=== PATIENT | male | born 1955 | race African-American/Black ===

== ENCOUNTER 2016-12-13 00:25 | Emergency (ER) | payer OTHER ==
[2016-12-13 01:12] LABS: URINE SOURCE VOIDED
--- NOTE | 2016-12-13 01:20 | PROVIDER DOCUMENTATION ---
HPI-General Adult - General Chief Complaint: Fall Stated Complaint: FALL Time Seen by Provider: 12/13/16 00:57 Source: patient Allergies/Adverse Reactions: Patient Allergies Allergy/AdvReac Type Severity Reaction Status Date / Time No Known Allergies Allergy Verified 12/13/16 00:54 Home Medications: Home Medication List Medication Instructions Recorded Confirmed Last Taken Type Digoxin 0.125 mg PO DAILY 09/12/14 10/30/16 1 Day Ago History Carvedilol 50 mg PO BID 09/16/14 10/30/16 1 Day Ago History Aspirin 81 mg PO QHS 09/20/15 10/30/16 1 Day Ago History Furosemide [Lasix] 40 mg PO DAILY PRN 09/20/15 10/30/16 10/30/16 History Albuterol Sulfate [Proair Hfa] 8.5 gm IH Q4-6H PRN PRN #1 09/22/15 10/30/16 Unknown Rx [email or web address] Tramadol [Ultram] 50 mg PO Q6H PRN PRN 10/30/16 10/30/16 Unknown History Sulfamethoxazole/Trimethoprim 1 each PO BID #10 tablet 12/13/16 Unknown Rx [Bactrim Ds Tablet] Tramadol [Ultram] 50 mg PO Q8HR #12 tablet 12/13/16 Unknown Rx - History of Present Illness -Gen Adult Nature of Presenting Problems: Pt. is 61 yom that presents with c/o left rib pain after he fell and hit his side on the end table. Pt. reports pain on inspiration and tenderness to touch. Pt. also reports having the urge to urinated but when he does it is difficult to go. Pt. denies any other symptoms at time of exam. Location of Pain/Injury: reports: chest (Left ribs). denies: head, face, mouth , neck, upper extremity, hand(s), abdomen, back, pelvis, genitalia, lower extremity, feet, upper body, lower body, generalized Pain Radiation: reports: no radiation Quality of Pain: reports: sharp. denies: aching, burning, cramping, dull, fullness, indigestion, pressure, stabbing, tearing, throbbing, tightness Severity: reports: mild. denies: moderate, severe Onset/Duration: reports: abrupt, last night Timing: reports: still present. denies: improving, gone now, resolved prior to arrival, intermittent, constant, changing over time, getting worse Context/Activities at Onset: reports: light activity, recent trauma history. denies: recent physical stress, possible bad food, cold exposure, out of country travel Modifying Factors: improves with: nothing Associated Symptoms: reports: chest pain (Left ribs), genitourinary problems. denies: anxiety, arm pain, back/neck pain, constipation, cough, diaphoresis, diarrhea, dizziness, EENT symptoms, fatigue, fever/chills, headaches, heartburn , joint pain, loss of appetite, malaise, muscle aches, sinus congestion/drainage , nausea, rash, seizure, shortness of breath, sensory/motor loss, pain with inspiration, swelling/mass in abdomen, syncope, vomiting, weakness, trouble walking Similar Symptoms Previously?: Yes Recently seen or treated by another doctor?: No Review of Systems - Adult - REVIEW OF SYSTEMS - ADULT Constitutional: reports: see HPI. denies: chills, fever, fatique Eyes: reports: see HPI. denies: discharge, blurred vision, double vision Ears, Nose, Mouth & Throat: reports: see HPI. denies: ear discharge, ear pain, hearing loss, sinus problem, nose pain, loose teeth, mouth/dental pain, throat pain, throat swelling Cardiovascular: reports: see HPI, chest pain (Left ribs). denies: irregular heart rate, orthopnea, syncope Respiratory: reports: see HPI. denies: chronic cough, cough, dyspnea on exertion, pleurisy, shortness of breath, wheezing Gastrointestinal: reports: see HPI. denies: abdominal pain, hematemesis, diarrhea, nausea, vomiting Genitourinary: reports: see HPI, hesitency. denies: dysuria, discharge, flank pain, hematuria, urgency Musculoskeletal: reports: see HPI, bone pain. denies: back pain, joint pain, joint swelling, neck pain Integumentary: reports: see HPI. denies: hives, hair loss, itching, rash, skin thickening Neurological: reports: see HPI. denies: ataxia, headache/migraines, numbness, paresthesia, seizure, tremors Psychiatric: reports: see HPI. denies: anxiety, depression, emotional problems , insomnia, panic attacks, suicidal thoughts Past History - Adult - PAST MEDICAL HISTORY-ADULT Review of Records: reports: Old Records Reviewed, Nursing Assessment Review, Medications Reviewed, Social history reviewed & non-contributory. Cardiovascular: reports: A-Fib, CHF, PR Respiratory: reports: COPD Gastrointestinal: reports: diverticulosis - PRIOR SURGERIES/PROCEDURES Surgical/Procedure History: reports: colonoscopy, bowel surgery, other - IMMUNIZATION STATUS Childhood Immunizations: See Nurse Assessment Flu Vaccine: See Nurse Assessment - FAMILY HISTORY Family History: reviewed, not pertinent - SOCIAL HISTORY Smoking: cigarettes, greater than 1 pack/day Provider spent 3-5 mins advising pt. on dangers of tobacco.: Discussed the need to stop smoking. Physical Exam-General - PHYSICAL EXAM-ADULT Initial Vital Signs Reviewed: Yes - CONSTITUTIONAL General Appearance: alert, mild distress, thin. negative: obese, anxious, lethargic, slow to respond, obtunded, combative - EYES Eyes: PERRL/EOMI, pink conjunctivae. negative: conjuctival exudate, scleral icterus, subconjunctival hemorrhage - HEAD, EARS, NOSE, MOUTH & THROAT HENMT: normocephalic/atraumatic, moist mucous membranes. negative: angioedema, frontal tenderness, maxillary tenderness - NECK Neck: non-tender, full range of motion, supple, normal inspection. negative: lymphadenopathy, trachial deviation, thyromegaly - RESPIRATORY Respiratory: lungs clear, normal breath sounds, pain on inspiration. negative: crackles, rales, rhonchi, stridor, wheezing - CARDIOVASCULAR Cardiovascular: regular rate, rhythm, no edema, no JVD, no murmur, tachycardia. negative: extra beats, friction rub, irregularly irregular - CHEST (BREASTS) Chest/Breast: deferred - GASTROINTESTINAL (ABDOMEN) Abdominal Exam: normal bowel sounds, non tender, soft. negative: distended, guarding, rigid, rebound, tenderness, hernia, mass - GENITOURINARY Male Genitalia: deferred Rectal Exam: deferred Hemoccult Exam: deferred - LYMPHATIC Lymphatic: no adenopathy. negative: axilla node tender, cervical node tenderness - MUSCULOSKELETAL Back Exam: normal inspection, no CVA tenderness, no vertebral tenderness. negative: ecchymosis, swelling, vertebral tenderness Extremity: normal range of motion, non-tender, normal gait, normal inspection. negative: deformity, erythema, inflammation, swelling, tenderness Peripheral Pulses: radial (R): 2+, radial (L): 2+ - SKIN Integumentary: normal color, normal turgor, warm/dry. negative: cyanosis, diaphoresis, ecchymosis, erythema, jaundice, mottled, pallor, petechiae, purpura , rash, swelling, tenderness - NEUROLOGIC Neurologic: grossly normal, no motor/sensory deficits. negative: aphasia, facial droop, focal weakness, motor weakness, sensory deficit - PSYCHIATRIC Psych/Mental Status: normal mood/affect, normal thought content, normal thought process, oriented x 3. negative: anxious, paranoid, tearful Progress - PLAN OF CARE/RESULTS Progress/Plan/Lab Results: Discussed results and plan of care with patient. Patient agrees with plan and verbalizes understanding. Vital Signs Temp Pulse Resp BP Pulse Ox 12/13/16 00:48 98.0 F 118 H 20 115/69 96 No Known Allergies Allergy (Verified 12/13/16 00:54) Digoxin 0.125 mg PO DAILY 09/12/14 Carvedilol 50 mg PO BID 09/16/14 Aspirin 81 mg PO QHS 09/20/15 Furosemide [Lasix] 40 mg PO DAILY PRN 09/20/15 Albuterol Sulfate [Proair Hfa] 8.5 gm IH Q4-6H PRN PRN #1 [email or web address] 09/22/15 Tramadol [Ultram] 50 mg PO Q6H PRN PRN 10/30/16 Laboratory 12/13/16 00:58 Urine Source VOIDED Urine Color YELLOW Urine Clarity CLEAR Urine pH 6.5 Ur Specific [place] 1.000 Urine Protein NEGATIVE Urine Ketones NEGATIVE Urine Blood 3+ A Urine Nitrite NEGATIVE Urine Bilirubin NEGATIVE Urine Urobilinogen NORMAL Urine Microscopic RBC 10-20 A Urine WBC TRACE A Urine Microscopic WBC <10 Ur Epithelial Cells <10 Urine Bacteria 2+ Urine Glucose NEGATIVE Orders Category Date Time Status RIBS UNILAT W/PA CHEST LEFT [RAD] Stat Exams 12/13/16 01:14 Taken UA [URINALYSIS PL W/POSS RFLX CULT] [URINALYSIS] Stat Lab 12/13/16 00:58 Results CefTRIAXONE [Rocephin] Med 12/13/16 01:56 Once 1 gm IM NOW ONE Lidocaine 1% Pf [Xylocaine-Mpf 1%] Med 12/13/16 01:56 Once 5 ml INJ NOW ONE Laboratory Tests 12/13/16 00:58 Urine Source VOIDED Urine Color YELLOW Urine Clarity CLEAR Urine pH 6.5 Ur Specific [place] 1.000 Urine Protein NEGATIVE Urine Ketones NEGATIVE Urine Blood 3+ A Urine Nitrite NEGATIVE Urine Bilirubin NEGATIVE Urine Urobilinogen NORMAL Urine Microscopic RBC 10-20 A Urine WBC TRACE A Urine Microscopic WBC <10 Ur Epithelial Cells <10 Urine Bacteria 2+ Urine Glucose NEGATIVE - XRAY 1 XRAY: Left XRAY Study: Chest, Ribs XRAY Interpretation: No Fx idenitified (Cook) Departure - Departure Time of Disposition Order: 01:57 DIAGNOSIS: UTI (urinary tract infection) Qualifiers: Urinary tract infection type: acute cystitis Hematuria presence: without hematuria Qualified Code(s): N30.00 - Acute cystitis without hematuria Rib contusion Qualifiers: Encounter type: initial encounter Laterality: left Qualified Code(s): S20.212A - Contusion of left front wall of thorax, initial encounter Disposition: HOME 01 Certified Medical Emergency: Emergent Condition: Stable Additional Instructions: Follow up with primary care physician Take medications as directed Return to ED for any concerns or worsening of symptoms ED Follow Up Instructions: You have been treated by a care provider in the Emergency Department. These instructions are being provided to you so you can have an understanding of how to care for yourself upon discharge. Upon discharge from the Emergency Department, you are responsible for making arrangements for follow-up care by a physician of your choice. Take all prescribed medications as directed. Return to the Emergency Department immediately for any new or worsening symptoms. You may call the Physician Referral phone number at [phone] to obtain a list of Physicians who are taking new patients. Prescriptions: Sulfamethoxazole/Trimethoprim [Bactrim Ds Tablet] 1 each PO BID #10 tablet Tramadol [Ultram] 50 mg PO Q8HR #12 tablet Attestation - Physician/ JODY Attestation Patient care was provided by Advanced Practice Provider:: Yes Advanced Practice Provider:: Moody Hull Advanced Practice Provider documentation review:: The Mid-level provider documentation, treatment plan and medical decision making was reviewed by the physician who agrees with all treatment and medical decision making by the MLP.
[2016-12-13 01:53] LABS: BILIRUBIN URINE NEGATIVE (NEGATIVE); BLOOD URINE 3+ (NEGATIVE); CLARITY CLEAR (CLEAR); COLOR YELLOW; GLUCOSE URINE NEGATIVE (NEGATIVE); LEUKOCYTES URINE TRACE (NEGATIVE); NITRITE URINE NEGATIVE (NEGATIVE); PH URINE 6.5; PROTEIN URINE NEGATIVE (NEGATIVE); UROBILINOGEN URINE NORMAL
[2016-12-13 01:54] LABS: URINE CULTURE PL NEEDED? YES; URINE EPITHELIAL CELLS <10 /HPF (<10); URINE WBC <10 /HPF (<10)
[2016-12-13] MEDS ORDERED: ROCEPHIN IM ONE (01:56)
[2016-12-13] MEDS ORDERED: XYLOCAINE-MPF 1% INJ ONE (01:56)
[2016-12-13] MEDS ORDERED: ULTRAM PO ONE (02:01)
[2016-12-13 02:45] VITALS: BP 125/84
--- NOTE | 2016-12-13 11:13 | Diag Imaging Result Document ---
PROCEDURE NAME: RIBS UNILAT W/PA CHEST LEFT - 12/13/2016 LEFT RIBS AND PA CHEST 5 VIEWS: FINDINGS: There is an apparent nondisplaced fracture of the posterolateral left 10th rib. There is no other acute appearing fracture identified. Upright chest compared 10/30/2016. Heart size appears within normal limits. There is a transvenous cardiac pacemaker again seen. There is subsegmental atelectasis of the bilateral lung bases. There is mild pleural thickening or tiny pleural effusion at the lateral left base. There is no consolidation or pneumothorax identified. There is a calcified pleural plaque at the left apex. IMPRESSION: 1. Nondisplaced fracture of posterolateral left 10th rib. 2. Mild basilar subsegmental atelectasis. Mild pleural thickening or tiny pleural effusion at the lateral left base. No evidence of pneumothorax. [facility]
== END 2016-12-13 02:44 | disposition home or self-care (01) ==
LOC: P.ED 00:25
DX: S20.212A Contusion of left front wall of thorax, initial encounter (principal); N30.00 Acute cystitis without hematuria; R07.81 Pleurodynia; R39.11 Hesitancy of micturition; I48.91 Unspecified atrial fibrillation; I50.9 Heart failure, unspecified; I25.2 Old myocardial infarction; J44.9 Chronic obstructive pulmonary disease, unspecified; Z79.899 Other long term (current) drug therapy; F17.210 Nicotine dependence, cigarettes, uncomplicated; Z71.6 Tobacco abuse counseling; W19.XXXA Unspecified fall, initial encounter; Z79.82 Long term (current) use of aspirin
CPT/HCPCS: 71101; 81001; 87088; 96372; J0696

== ENCOUNTER 2019-09-17 12:00 | Inpatient (IN) ==
[2019-09-17] MEDS ORDERED: ASPIRIN PO ONE (12:08)
--- NOTE | 2019-09-17 12:40 | EKG Report ---
Test Performed on : 09/17/2019 12:25:17 PM Test Reason : sob hx chf Blood Pressure : / mmHG Vent. Rate : 096 BPM Atrial Rate : 096 BPM P-R Int : 176 ms QRS Dur : 144 ms QT Int : 402 ms P-R-T Axes : 074 -53 110 degrees QTc Int : 507 ms Normal sinus rhythm. Left atrial enlargement Left axis deviation Left bundle branch block Abnormal ECG When compared with ECG of 30-SEP-2018 21:29, Significant changes have occurred Unconfirmed Result
--- NOTE | 2019-09-17 12:51 | Diag Imaging Result Doc PS360 ---
CHEST-2 VIEWS - 09/17/2019 INDICATION: sob hx chf COMPARISON: 12/21/2018 FINDINGS: Stable left-sided dual-chamber pacemaker. There is severe worsening in the cardiomegaly. There is severe pulmonary vascular congestion. There are small bilateral pleural effusions. There are some nonspecific hazy infiltrates in the lung bases suggesting pulmonary edema. Stable pleural thickening/scarring at the left apex. IMPRESSION: Congestive heart failure. Electronically signed by Richie Parker 09/17/2019 12:49 PM
[2019-09-17] MEDS ORDERED: VANCOMYCIN 1 GM/NS 1 GM/250 ML IVPB IV ONE (12:54)
[2019-09-17] MEDS ORDERED: ROCEPHIN 1 GM in NS 50 ML IV ONE (12:54)
[2019-09-17 13:08] LABS: ALBUMIN 3.9 g/dL (3.5-5.0); CALCIUM 8.8 mg/dL (8.8-10.2); CREATININE 1.3 mg/dL (0.7-1.2); POTASSIUM 4.9 mmol/L (3.5-5.1); TOTAL BILIRUBIN 1.1 mg/dL (0.20-1.00); TOTAL PROTEIN 7.7 g/dL (6.3-8.3)
[2019-09-17 13:21] LABS: BASO# 0.06 X1000 (0.0-0.2); EOS# 0.03 X1000 (0.0-0.7); EOS% 0.5 % (0.0-10.0); HEMATOCRIT 44.2 % (42.0-52.0); HEMOGLOBIN 14.7 g/dL (14.0-18.0); IMM GRAN# 0.01 X1000 (0.0-0.04); IMM GRAN% 0.2 % (0.0-0.5); LYMPH# 1.41 X1000 (1.2-3.4); LYMPH% 23.3 % (20.5-51.1); MCH 28.7 PG (27-31); MCHC 33.3 g/dL (33-37); MCV 86.2 FL (81-99); MONO# 0.68 X1000 (0.11-0.59); MONO% 11.3 % (1.7-9.3); MPV 10.2 FL (7.4-10.4); NEUT# 3.85 X1000 (1.4-6.5); NEUT% 63.7 % (42.2-75.2); PLT 220 X1000 (130-400); RBC 5.13 XMIL (4.7-6.1); RDW 14.4 % (11.5-14.5); WBC 6.04 X1000 (4.8-10.8)
[2019-09-17 13:48] LABS: INR 1.2; PROTIME 15.9 Seconds (11.0-16.0)
[2019-09-17 13:49] LABS: PTT 29.8 Seconds (22.3-41.8)
[2019-09-17] MEDS ORDERED: LASIX IV ONE (14:13)
[2019-09-17 14:32] LABS: BE 0.5 mmoll (-3.0-3.0); BLOOD TYPE ARTERIAL; O2(CT) 17.3 mL/dL (15.0-23.0); PCO2(98.6) 30 mmHg (35-45); PO2(98.6) 55 mmHg (60-100); SAMPLE BLOOD; SAO2 91.3 % (95.0-100.0); THB 14.2 g/dL (11.5-17.4); pH(98.6) 7.49 (7.35-7.45)
[2019-09-17 14:35] LABS: ALLEN TEST YES; MODALITY ROOM AIR; O2HB 86.8 % (95.0-99.0)
--- NOTE | 2019-09-17 14:45 | PROVIDER DOCUMENTATION ---
This chart was entered by Cheli Alvarenga Scribe, acting as scribe for Sergei Owusu MD. HPI-Respiratory General - General Chief Complaint: Shortness of Breath Stated Complaint: SOB Time Seen by Provider: 09/17/19 12:42 Source: patient Allergies/Adverse Reactions: Patient Allergies Allergy/AdvReac Type Severity Reaction Status Date / Time No Known Allergies Allergy Verified 09/17/19 13:04 Home Medications: Home Medication List Medication Instructions Recorded Confirmed Last Taken Type Digoxin 0.125 mg PO DAILY 09/12/14 09/17/19 12/10/18 11:00 History Aspirin 81 mg PO QAM 09/20/15 09/17/19 12/08/18 10:00 History Albuterol Sulfate [Proair Hfa] 8.5 gm IH Q4-6H PRN PRN #1 09/22/15 09/17/19 Unknown Rx hfa.[email or web address] Metoprolol Succinate E.r. [Toprol 100 mg PO DAILY 01/30/18 09/17/19 12/11/18 07:48 History Xl] Hydrocodone/Acetaminophen [[place] 1 ea PO TID 09/17/19 09/17/19 Unknown History 10-325 Tablet] Zolpidem [Ambien] 10 mg PO QHS 09/17/19 09/17/19 Unknown History - History of Present Illness-Resp Nature of Presenting Problem: Patient is a 63 year old male who presents with shortness of breath and cough. States symptoms have been presents for 2 days and getting worse. Denies fever. History of COPD, CHF and asthma. Quality of Pain: reports: none Severity in ED: reports: mild Onset/Duration: reports: 2 days ago Timing: reports: still present, getting worse Cough Quality/Degree: reports: moderate, productive cough, sputum Associated Symptoms: reports: cough, shortness of breath Similar Symptoms Previously?: Yes Recently seen or treated by another doctor?: No Review of Systems - Adult - REVIEW OF SYSTEMS - ADULT Constitutional: reports: no symptoms reported. denies: chills, fever, fatique Eyes: reports: no symptoms reported Ears, Nose, Mouth & Throat: reports: no symptoms reported Cardiovascular: reports: no symptoms reported Respiratory: reports: see HPI, cough, shortness of breath. denies: wheezing Gastrointestinal: reports: no symptoms reported. denies: abdominal pain, nausea, vomiting Genitourinary: reports: no symptoms reported Musculoskeletal: reports: no symptoms reported Integumentary: reports: no symptoms reported Neurological: reports: no symptoms reported Psychiatric: reports: no symptoms reported Endocrine: reports: no symptoms reported Hematologic/Lymphatic: reports: no symptoms reported Allergic/Immunologic: reports: no symptoms reported All Other Systems: Reviewed and Negative Past History - Adult - PAST MEDICAL HISTORY-ADULT Review of Records: reports: Old Records Reviewed, Nursing Assessment Review, Medications Reviewed, Social history reviewed & non-contributory. Major Childhood Illnesses: reports: denies history Cardiovascular: reports: A-Fib, CHF, HTN, [place], pacemaker, other (defib) Respiratory: reports: asthma, COPD Gastrointestinal: reports: diverticulosis Obstetrical/Gynecological: reports: denies history Genitourinary: reports: denies history Musculoskeletal: reports: denies history Neurological: reports: denies history Endocrine/Immune: reports: denies history Other Conditions: reports: denies history - PRIOR SURGERIES/PROCEDURES Surgical/Procedure History: reports: colonoscopy, hernia repair, bowel surgery, other (defib) - IMMUNIZATION STATUS Childhood Immunizations: See Nurse Assessment Flu Vaccine: See Nurse Assessment - FAMILY HISTORY Family History: reviewed, not pertinent - SOCIAL HISTORY Smoking: cigarettes, greater than 1 pack/day Provider spent 3-5 mins advising pt. on dangers of tobacco.: Discussed manners to quit use, and f/u contacts for add'l counseling. Substance Use: alcohol Alcohol Use Frequency: twice a week Living Situation: family Physical Exam-General - PHYSICAL EXAM-ADULT Initial Vital Signs Reviewed: Yes - CONSTITUTIONAL General Appearance: alert, no apparent distress. negative: lethargic - RESPIRATORY Respiratory: chest non-tender, rales (left base), increased rate. negative: respiratory distress, crackles - CARDIOVASCULAR Cardiovascular: normal peripheral pulses, tachycardia. negative: regular rate, rhythm - SKIN Integumentary: normal color, normal turgor, warm/dry. negative: diaphoresis - NEUROLOGIC Neurologic: grossly normal. negative: aphasia, facial droop - PSYCHIATRIC Psych/Mental Status: normal mood/affect, oriented x 3. negative: anxious - HEART Score HEART Score: History: Slightly Suspicious HEART Score: ECG: Non-Specific Repolarization Disturbance/LBBB/PM HEART Score: Age: > or = 65 Years HEART Score: Risk Factors for Atherosclerotic Disease: 1 or 2 Risk Factors HEART Score: Troponin: < or = Normal Limit Total HEART Score:: 4 Progress - PLAN OF CARE/RESULTS Progress/Plan/Lab Results: Vital Signs - 8 hr 09/17/19 12:03 Temperature 98 F Pulse Rate 66 Respiratory Rate 18 Blood Pressure 101/74 O2 Sat by Pulse Oximetry 95 Laboratory Results - last 24 hr 09/17/19 09/17/19 09/17/19 12:31 13:04 13:04 WBC 6.04 RBC 5.13 Hgb 14.7 Hct 44.2 MCV 86.2 MCH 28.7 MCHC 33.3 RDW Std Deviation 14.4 Plt Count 220 MPV 10.2 Immature Gran % (Auto) 0.2 Neut % (Auto) 63.7 Lymph % (Auto) 23.3 [place] % (Auto) 11.3 H Eos % (Auto) 0.5 Baso % (Auto) 1.0 H Immature Gran # (Auto) 0.01 Neut # (Auto) 3.85 Lymph # (Auto) 1.41 [place] # (Auto) 0.68 H Eos # (Auto) 0.03 Baso # (Auto) 0.06 PT INR PTT (Actin FS) Specimen Type Sample Site pH pCO2 pO2 HCO3 Base Excess Oxyhemoglobin ABG O2 Sat (Calculated) ABG O2 Saturation ABG Carboxyhemoglobin ABG Methemoglobin Kurtis Test A-a O2 Difference Total Hemoglobin Lactate Blood Gas Modality FiO2 % Sodium 139 Potassium 4.9 Chloride 106 Carbon Dioxide 18 L Anion Gap 15 BUN 19 Creatinine 1.3 H Estimated GFR/1.73 m2 55 BUN/Creatinine Ratio 15 Glucose 115 H Calculated Osmolality 281 Calcium 8.8 Total Bilirubin 1.10 H AST 31 ALT 18 Alkaline Phosphatase 116 Creatine Kinase 80 Troponin T [id number]-Pnzwxlczrkd Pept Total Protein 7.7 Albumin 3.9 Globulin 4.0 Albumin/Globulin Ratio 1.0 Plasma Lactate 09/17/19 09/17/19 09/17/19 13:04 13:04 13:04 WBC RBC Hgb Hct MCV MCH MCHC RDW Std Deviation Plt Count MPV Immature Gran % (Auto) Neut % (Auto) Lymph % (Auto) [place] % (Auto) Eos % (Auto) Baso % (Auto) Immature Gran # (Auto) Neut # (Auto) Lymph # (Auto) [place] # (Auto) Eos # (Auto) Baso # (Auto) PT INR PTT (Actin FS) Specimen Type Sample Site pH pCO2 pO2 HCO3 Base Excess Oxyhemoglobin ABG O2 Sat (Calculated) ABG O2 Saturation ABG Carboxyhemoglobin ABG Methemoglobin Kurtis Test A-a O2 Difference Total Hemoglobin Lactate Blood Gas Modality FiO2 % Sodium Potassium Chloride Carbon Dioxide Anion Gap BUN Creatinine Estimated GFR/1.73 m2 BUN/Creatinine Ratio Glucose Calculated Osmolality Calcium Total Bilirubin AST ALT Alkaline Phosphatase Creatine Kinase Troponin T 0.014 Gsj-[place]ormcxgarl Pept 36378 H Total Protein Albumin Globulin Albumin/Globulin Ratio Plasma Lactate 2.9 H 09/17/19 09/17/19 13:05 14:08 WBC RBC Hgb Hct MCV MCH MCHC RDW Std Deviation Plt Count MPV Immature Gran % (Auto) Neut % (Auto) Lymph % (Auto) [place] % (Auto) Eos % (Auto) Baso % (Auto) Immature Gran # (Auto) Neut # (Auto) Lymph # (Auto) [place] # (Auto) Eos # (Auto) Baso # (Auto) PT 15.9 INR 1.20 PTT (Actin FS) 29.8 Specimen Type ARTERIAL Sample Site L RADIAL pH 7.49 H pCO2 30 L pO2 55 L HCO3 25.0 Base Excess 0.5 Oxyhemoglobin 86.8 L* ABG O2 Sat (Calculated) 17.3 ABG O2 Saturation 91.3 L ABG Carboxyhemoglobin 3.90 H ABG Methemoglobin 1.0 Kurtis Test YES A-a O2 Difference 57.0 Total Hemoglobin 14.2 Lactate 1.50 Blood Gas Modality ROOM AIR FiO2 % 21.0 Sodium Potassium Chloride Carbon Dioxide Anion Gap BUN Creatinine Estimated GFR/1.73 m2 BUN/Creatinine Ratio Glucose Calculated Osmolality Calcium Total Bilirubin AST ALT Alkaline Phosphatase Creatine Kinase Troponin T Hcl-V-Drleilohnfo Pept Total Protein Albumin Globulin Albumin/Globulin Ratio Plasma Lactate Orders Category Date Time Status Cardiac Monitoring DIRECTED Care 09/17/19 12:08 Active Oxygen Therapy- ED Nursing DIRECTED Care 09/17/19 12:08 Active Saline Loc NOW Care 09/17/19 12:08 Active CHEST-2 VIEWS [RAD] Stat Exams 09/17/19 12:08 Completed ABG [RESP] Routine Lab 09/17/19 14:08 Completed BLOOD CULTURE [BLDCUL] Stat Lab 09/17/19 12:52 Ordered CBC WITH ELECTRONIC DIFF [HEME] Stat Lab 09/17/19 13:04 Completed CK PROFILE [SP CHEM] Stat Lab 09/17/19 13:04 Completed COMPREHENSIVE METABOLIC PANEL [CHEM] Stat Lab 09/17/19 12:31 Completed LACTATE, PLASMA [CHEM] Stat Lab 09/17/19 13:04 Completed PRO B-NATRIURETIC PEPTIDE Stat Lab 09/17/19 13:04 Completed PROTIME WITH INR [COAG] Stat Lab 09/17/19 13:05 Completed PTT [COAG] Stat Lab 09/17/19 13:05 Completed TROPONIN T Stat Lab 09/17/19 13:04 Completed Aspirin Med 09/17/19 12:08 Discontinued 325 mg PO NOW ONE CefTRIAXONE [Rocephin] 1 gm Med 09/17/19 12:54 Discontinued 0.9% Sodium Chloride Inj [Ns] 50 ml IV NOW Furosemide [Lasix] Med 09/17/19 14:13 Discontinued 20 mg IV NOW ONE Vancomycin 1 gm/Ns Med 09/17/19 12:54 Discontinued 1 gm in 250 ml IV NOW CP/SOB/Palp >45 yrs of Age Stat Oth 09/17/19 12:08 Ordered EKG [EKG] Stat Ther 09/17/19 12:08 Draft Result Diagrams: 09/17/19 13:04 09/17/19 12:31 - REASSESSMENT Reassessment #1 Time Reassessed: 14:42 Status: unchanged (ABG 7.49/30/55 : BNP 34K, L.A. 2.9) - EKG 1 Time of EKG reading by physician:: 12:25 EKG Read and Signed by:: Sergei Owusu EKG Interpretation (*Must complete 3 of following elements*): Abnormal Rate: 96 Rhythm: normal sinus rhythm [place]: left QRS: LBB UT Interval: normal Comments: left atrial enlargement - XRAY 1 XRAY Study: Chest Impression: See EMR Report ( CHEST-2 VIEWS - 09/17/2019 INDICATION: sob hx chf COMPARISON: 12/21/2018 FINDINGS: Stable left-sided dual-chamber pacemaker. There is severe worsening in the cardiomegaly. There is severe pulmon harmeet vascular congestion. There are small bilateral pleural effusions. There are some nonspecific hazy infiltrates in the lung bases suggesting pulmonary edema. Stable pleural thickening/scarring at the left apex. IMPRESSION: Congestive heart failure. Electronically signed by Richie Parker 09/17/2019 12:49 PM 09/17/19 1249 Interpreting Physician: Richie Parker MD Dictated Date/Time: 09/17/19 1248 cc: Sergei Owusu MD; Cal Coyne MD) - CONSULTS/PCP/HOSPITALIST Notification #1 *Consult/PCP/Hospitalist*: Dr. Kessler Time Discussed: 14:37 Reason/Comments: Dr. Owusu consulted with Dr. Kessler about patient. Consult Disposition: Will see in ED, Admit Departure - Departure Date of Disposition Decision: 09/17/19 Time of Disposition Decision: 14:44 DIAGNOSIS: CHF exacerbation Qualifiers: Heart failure type: unspecified Qualified Code(s): I50.9 - Heart failure, unspecified COPD (chronic obstructive pulmonary disease) Qualifiers: COPD type: chronic bronchitis Chronic bronchitis type: unspecified Qualified Code(s): J42 - Unspecified chronic bronchitis Fluid overload Qualifiers: Hypervolemia type: unspecified Qualified Code(s): E87.70 - Fluid overload, unspecified Disposition: ADMITTED INPATIENT 09 Certified Medical Emergency: Emergent Condition: Stable Referrals and Follow-Ups: Cal Coyne MD [Primary Care Provider] - - Critical Care Note This patient required my direct & personal management of CC.: No Attestation - Physician/ JODY Attestation The physician spent face to face time with patient:: Yes Advanced Practice Provider documentation review:: Supervising physician onsite and consulted in the evaluation and care of this patient. The physician did have a face to face encounter with the patient. This chart was documented by the indicated scribe, (Cheli Alvarenga Scribe) and accurately reflects the services I performed and decisions made by me, Sergei Owusu MD, as attested by the provider's signature.
[2019-09-17] MEDS ORDERED: TYLENOL PO PRN (16:17)
[2019-09-17] MEDS ORDERED: VENTOLIN HFA INH PRN (16:17)
[2019-09-17] MEDS ORDERED: ZOFRAN IV PRN (16:17)
[2019-09-17] MEDS: NORCO-10 PO SCH (18:11)
[2019-09-17] MEDS: SOLU-MEDROL IV SCH (18:11)
[2019-09-17] MEDS: NICODERM PATCH TD SCH (18:18)
--- NOTE | 2019-09-17 20:10 | HISTORY AND PHYSICAL ---
PRIMARY CARE PHYSICIAN: Cal Coyne MD CHIEF COMPLAINT: Shortness of breath and cough for the past 2 days that progressively worsened. HISTORY OF PRESENTING ILLNESS: This is a 63-year-old male who presents to [facility] ER with complaints of shortness of breath and a cough for the past 2 days that have progressively worsened. States he has also noted some swelling to his bilateral lower extremities and some abdominal distention. Workup showed an ABG with a pH of 7.49, pCO2 of 30, PO2 55, bicarb 25, oxyhemoglobin 86.8, carboxyhemoglobin 3.90 and this was on room air. His proBNP is 34,226. He does have a known history of systolic congestive heart failure and nonischemic cardiomyopathy with a known ejection fraction approximately 1 year ago of 30 to 35 percent. He is also noted to be wheezing, expiratory, bilaterally. He continues to smoke a pack of cigarettes a day. So, he will be admitted for further evaluation and treatment. PAST MEDICAL HISTORY: Nonischemic cardiomyopathy, chronic diverticulitis, systolic congestive heart failure, COPD, and cardiac arrest and atrial fibrillation. PAST SURGICAL HISTORY: Colectomy with colostomy, AICD, and hernia surgery. FAMILY HISTORY: Reviewed and noncontributory. SOCIAL HISTORY: Currently lives with family. Smokes a pack of cigarettes a day and has done so for 30+ years and drinks alcohol 1 to 2 times a week. Denies any illicit drug use. ALLERGIES: He has no known drug allergies. HOME MEDICATIONS: ProAir inhalation q.4-6 hours p.r.n., aspirin 81 mg p.o. q.a.m., digoxin 0.125 mg p.o. daily, [place] 10 one p.o. t.i.d., metoprolol 100 mg p.o. daily and Ambien 10 mg p.o. at bedtime. LABORATORY DATA: Showed a white blood cell count of 6.04, hemoglobin 14.7, hematocrit 44.2, platelets 220,000. PT and INR of 15.9 and 1.20. ABG with a pH of 7.49, pCO2 of 30, PO2 55, bicarb 25, oxyhemoglobin 86.8, carboxyhemoglobin 3.90 and this was on room air. Sodium 139, potassium 4.9, chloride 106, CO2 18, BUN of 19, creatinine 1.3, glucose 115, proBNP of 34,226. Cardiac enzyme was negative. Plasma lactate of 2.9. A chest x-ray with congestive heart failure. EKG normal sinus rhythm at 96. REVIEW OF SYSTEMS: He denied any fever, chills, blurred vision, dizziness, chest pain. He had a cough, shortness of breath. Denied any abdominal pain, constipation, diarrhea, burning or hurting with urination. PHYSICAL EXAMINATION: On arrival, he had a temperature of 98 degrees, pulse 66, respirations 18, blood pressure 101/74, saturating 95% on room air. GENERAL: This is a 63-year-old male who is lying in the bed and answers questions appropriately. HEENT: Normocephalic, atraumatic. Normal ENT inspection. Oropharynx and nares are clear. EYES: Pupils are equal, round, reactive to light and accommodation. Extraocular movements are intact. NECK: Normal inspection. Normal range of motion. LUNGS: With expiratory wheezing throughout posterior lung thorne. Equal lung expansion. Chest wall movement is noted. HEART: Regular rate and rhythm. No murmurs, rubs, or gallops. ABDOMEN: Soft, nontender, nondistended. Bowel sounds are present x4 quadrants. MUSCULOSKELETAL: He had 5/5 strength x4 extremities. NEUROLOGICAL: The cranial nerves 2 through 12 appear grossly intact. ASSESSMENT: 1. An acute systolic congestive heart failure exacerbation. 2. An acute chronic obstructive pulmonary disease exacerbation. 3. A mild acute kidney injury. 4. Tobacco abuse. OUR PLAN: He will be admitted to the medical unit, placed on telemetry, O2 per protocol, incentive spirometry, healthy heart diet. We will do an echocardiogram in the a.m.. Placed on Lasix 40 mg IV q.12, Solu-Medrol 80 mg IV q.8h and wean as he improves, Rocephin 1 gram IV q.24, azithromycin 500 IV q.24. Continue home medications as previously identified. Blood cultures x2 are pending. CBC, BMP, and patient is noted to be a full code. Further orders after seen by attending. Dictated by KOSTA Wasserman for Magno Kessler MD cc: KOSTA Wasserman MD Moses Awoniyi, MD
[2019-09-17] MEDS ORDERED: AMBIEN PO SCH (21:00)
[2019-09-17] MEDS: LASIX IV SCH (21:25)
[2019-09-18] MEDS: SOLU-MEDROL IV SCH ×2 (01:14→10:28)
--- NOTE | 2019-09-18 07:16 | HISTORY AND PHYSICAL ---
ADDENDUM: Patient was seen and examined by myself. Full note dictated and discussed with nurse practitioner. Patient presented to the hospital with increased cough, congestion, and increased work of breathing. He is a 63-year-old male who has a known history of COPD, CHF, and asthma. He currently appears to be in CHF exacerbation. I am going to admit him to the hospital for IV Lasix and we will follow. cc: Magno Kessler MD
[2019-09-18 07:34] LABS: CREATININE 1.4 mg/dL (0.7-1.2); POTASSIUM 5.2 mmol/L (3.5-5.1)
[2019-09-18 08:10] VITALS: BP 123/77
[2019-09-18] MEDS ORDERED: LANOXIN PO SCH (09:00)
[2019-09-18] MEDS ORDERED: TOPROL XL PO SCH (09:00)
[2019-09-18] MEDS ORDERED: ASPIRIN PO SCH (09:00)
[2019-09-18] MEDS: NICODERM PATCH TD SCH (10:28)
[2019-09-18 10:29] LABS: BASO# 0.03 X1000 (0.0-0.2); BASO% 0.8 % (0.0-0.8); EOS# 0.02 X1000 (0.0-0.7); EOS% 0.5 % (0.0-10.0); HEMATOCRIT 46.9 % (42.0-52.0); HEMOGLOBIN 15.4 g/dL (14.0-18.0); IMM GRAN# 0.01 X1000 (0.0-0.04); IMM GRAN% 0.3 % (0.0-0.5); LYMPH# 0.62 X1000 (1.2-3.4); LYMPH% 15.7 % (20.5-51.1); MCH 28.6 PG (27-31); MCHC 32.8 g/dL (33-37); MCV 87.2 FL (81-99); MONO# 0.07 X1000 (0.11-0.59); MONO% 1.8 % (1.7-9.3); MPV 10.6 FL (7.4-10.4); NEUT# 3.19 X1000 (1.4-6.5); NEUT% 80.9 % (42.2-75.2); PLT 125 X1000 (130-400); RBC 5.38 XMIL (4.7-6.1); WBC 3.94 X1000 (4.8-10.8)
[2019-09-18] MEDS: LASIX IV SCH (10:29)
[2019-09-18] MEDS: NORCO-10 PO SCH (10:30)
--- NOTE | 2019-09-18 13:30 | ECHO REPORT ---
ORDER DATE: 09/18/2019 INDICATION: Systolic heart failure. FINDINGS: 1. Right atrium is mildly enlarged. A linear echodensity is seen in the right heart chambers, consistent with device leads. 2. Moderate tricuspid regurgitation. The RV systolic pressure is 82, suggesting severe pulmonary hypertension. 3. The right ventricle is enlarged with [id number] reduction in RV systolic function. 4. Mild pulmonic insufficiency. 5. Severe left atrial enlargement with a volume index of 82. 6. No mitral valve prolapse. There is apical tenting of the mitral leaflets, consistent with a dilated left ventricle. There is a severe central jet of mitral regurgitation. No mitral stenosis. 7. The left ventricle was dilated with an end-diastolic dimension of 6.3 cm. Normal wall thicknesses with a posterior and interventricular septal wall thickness of 1 cm each. Severe reduction in LV systolic function with an estimated EF of 15 to 20 percent. No clear evidence of LV thrombus was identified. 8. Aortic valve opens well. It is trileaflet. No evidence of stenosis or insufficiency. 9. Aorta appears normal in visualized segments. 10. There is no pericardial effusion seen. A pleural effusion was noted. cc: MD Jaclyn Xiong CRNP
[2019-09-18] MEDS ORDERED: ROCEPHIN 1 GM in NS 50 ML IV SCH (15:00)
[2019-09-18] MEDS ORDERED: ZITHROMAX 500 MG/NS 500 MG/250 ML IVPB IV SCH (15:30)
--- NOTE | 2019-09-19 13:11 | DISCHARGE SUMMARY ---
ADMISSION DATE: 09/17/2019 DISCHARGE DATE: 09/18/2019 ADMISSION DIAGNOSIS: Acute systolic heart failure exacerbation. DISCHARGE DIAGNOSIS: Acute systolic heart failure exacerbation. HOSPITAL COURSE: Briefly, this is a 63-year-old male who presents with shortness of breath. He was placed on diuretics. He had a proBNP of 34,000. He has an EF previously of 30 to 35 percent. There was some COPD exacerbation as well. In any case, the patient felt much improved and he was discharged in stable condition the following day, very eager to go home. As his lungs had cleared, we felt stable for him to go home. I did discuss the case briefly with Dr. Ayers who is going to follow up with him. We will give him a Medrol Dosepak because apparently he had been on steroids here and wheezing significantly. DISCHARGE MEDICATIONS: Ambien 10 at bedtime, aspirin 81 daily, digoxin 0.125 daily, [place] p.r.n., Coreg 6.25 b.i.d. which is new, Entresto 24/26 mg b.i.d., Lasix 40 b.i.d., Medrol Dosepak, ProAir, and we will give him a course of Ceftin for 5 days. A 32 minute discharge. He is to follow up with Dr. Ayers in 1 to 2 days and follow closely. cc: MD London Stevens MD
== END 2019-09-18 12:51 | disposition home or self-care (01) | DRG 292 ==
LOC: P.ED 12:00 → P.MEDSURG 15:59 → SUATTDRO 15:59
PROVIDERS: ATTEND Internal Medicine

== ENCOUNTER 2020-01-19 01:35 | Inpatient (IN) ==
--- NOTE | 2020-01-19 02:35 | PROVIDER DOCUMENTATION ---
HPI-Syncope/Dizziness - General Chief Complaint: Syncope Stated Complaint: syncope Time Seen by Provider: 01/19/20 01:40 Source: patient, EMS Allergies/Adverse Reactions: Patient Allergies Allergy/AdvReac Type Severity Reaction Status Date / Time No Known Allergies Allergy Verified 09/17/19 13:04 Home Medications: Home Medication List Medication Instructions Recorded Confirmed Last Taken Type Digoxin 0.125 mg PO DAILY 09/12/14 09/17/19 12/10/18 11:00 History Aspirin 81 mg PO QAM 09/20/15 09/17/19 09/17/19 08:00 History Albuterol Sulfate [Proair Hfa] 8.5 gm IH Q4-6H PRN PRN #1 09/22/15 09/17/19 Unknown Rx hfa.[email or web address] Hydrocodone/Acetaminophen [[place] 1 ea PO TID 09/17/19 09/17/19 Unknown History 10-325 Tablet] Zolpidem [Ambien] 10 mg PO QHS 09/17/19 09/17/19 Unknown History Carvedilol [Coreg] 6.25 mg PO BID #60 tab 09/18/19 Unknown Rx CefUROXIME [Ceftin] 500 mg PO Q12HR #10 tab 09/18/19 Unknown Rx Furosemide [Lasix] 40 mg PO DAILY #30 tab 09/18/19 Unknown Rx Methylprednisolone [Medrol Dosepak] 4 mg PO DIRECTED #1 pkg 09/18/19 Unknown Rx Sacubitril/Valsartan [Entresto 24 1 ea PO BID #60 tab 09/18/19 Unknown Rx mg-26 mg Tablet] - History of Present Illness-Syncope/Dizzy Nature of Presenting Problem: Pt is a 64 y/o male who presents with c/o passing out. As per the EMS, the family informed them that the pt was cooking and they smelled something burning and when they checked they found the pt passed out on the floor. The pt was found to have a pulse in 30's. Enroute to the hospital pt passed out 5-6 times as per EMS. Pt is sleepy but abusable, says he took some [place]. Denies any pain or SOB or headache, fever or chills or cough or abd pain or urinary symptoms. Pt has a pacemaker and says that it had fired last week. Review of Systems - Adult - REVIEW OF SYSTEMS - ADULT Constitutional: denies: no symptoms reported Eyes: denies: no symptoms reported Ears, Nose, Mouth & Throat: denies: no symptoms reported Cardiovascular: denies: no symptoms reported Respiratory: denies: no symptoms reported Gastrointestinal: denies: no symptoms reported Genitourinary: denies: no symptoms reported Musculoskeletal: denies: no symptoms reported Integumentary: denies: no symptoms reported Neurological: reports: see HPI Psychiatric: denies: no symptoms reported Endocrine: denies: no symptoms reported Hematologic/Lymphatic: denies: no symptoms reported Allergic/Immunologic: denies: no symptoms reported Past History - Adult - PAST MEDICAL HISTORY-ADULT Review of Records: reports: Nursing Assessment Review, Medications Reviewed, Social history reviewed & non-contributory. Major Childhood Illnesses: reports: denies history Cardiovascular: reports: A-Fib, CHF, HTN, PA, other (defib) Respiratory: reports: COPD Gastrointestinal: reports: diverticulosis - PRIOR SURGERIES/PROCEDURES Surgical/Procedure History: reports: colonoscopy, bowel surgery, other (defib) - IMMUNIZATION STATUS Childhood Immunizations: See Nurse Assessment Flu Vaccine: See Nurse Assessment - FAMILY HISTORY Family History: reviewed, not pertinent Physical Exam-General - PHYSICAL EXAM-ADULT Initial Vital Signs Reviewed: Yes - CONSTITUTIONAL General Appearance: appears well, alert, no apparent distress - EYES Eyes: PERRL/EOMI, pink conjunctivae - HEAD, EARS, NOSE, MOUTH & THROAT HENMT: normocephalic/atraumatic, moist mucous membranes, normal ENT inspection, pharynx normal - NECK Neck: supple - RESPIRATORY Respiratory: lungs clear, normal breath sounds, no respiratory distress, no accessory muscle use - CARDIOVASCULAR Cardiovascular: no murmur, bradycardia, tachycardia - GASTROINTESTINAL (ABDOMEN) Abdominal Exam: non tender, soft - MUSCULOSKELETAL Back Exam: no CVA tenderness, no vertebral tenderness Extremity: pedal edema (trace) - SKIN Integumentary: normal color, warm/dry - NEUROLOGIC Neurologic: grossly normal, no motor/sensory deficits. negative: abnormal cereb ellar tests - PSYCHIATRIC Psych/Mental Status: normal mood/affect, other (oriented x3) Progress - PLAN OF CARE/RESULTS Progress/Plan/Lab Results: Vital Signs - 8 hr 01/19/20 01:53 01/19/20 03:00 01/19/20 04:00 Temperature 97.1 F L Pulse Rate 98 H 106 H 100 H Respiratory Rate 18 16 14 Blood Pressure 110/77 125/79 104/73 O2 Sat by Pulse Oximetry 93 L 94 L 91 L 01/19/20 05:00 01/19/20 06:00 01/19/20 07:16 Temperature Pulse Rate 90 96 H 89 Respiratory Rate 20 16 16 Blood Pressure 112/90 124/81 135/95 O2 Sat by Pulse Oximetry 92 L 91 L 93 L 01/19/20 07:29 Temperature 97.4 F L Pulse Rate 90 Respiratory Rate 14 Blood Pressure 135/95 O2 Sat by Pulse Oximetry 92 L Laboratory Results - last 24 hr 01/19/20 01/19/20 01/19/20 02:45 02:45 02:45 WBC RBC Hgb Hct MCV MCH MCHC RDW Std Deviation Plt Count MPV Immature Gran % (Auto) Neut % (Auto) Lymph % (Auto) [place] % (Auto) Eos % (Auto) Baso % (Auto) Immature Gran # (Auto) Neut # (Auto) Lymph # (Auto) [place] # (Auto) Eos # (Auto) Baso # (Auto) PT 14.6 INR 1.12 PTT (Actin FS) 29.6 Sodium 143 Potassium 3.9 Chloride 100 Carbon Dioxide 20 L Anion Gap 23 BUN 25 H Creatinine 1.6 H Estimated GFR/1.73 m2 53 BUN/Creatinine Ratio 16 Glucose 108 H Calculated Osmolality 290 Calcium 9.2 Magnesium 2.1 Total Bilirubin 1.03 H AST 43 H ALT 18 Alkaline Phosphatase 156 H Creatine Kinase 390 H Creatine Kinase Index 2.5 CK-MB (CK-2) 9.65 H Troponin T High Sens 77 H Total Protein 8.4 H Albumin 4.0 Globulin 4.4 Albumin/Globulin Ratio 0.9 Plasma Lactate Urine Source Urine Color Urine Turbidity Urine pH Ur Specific [place] Urine Protein Ur Glucose (Stick) Ur Ketones (Stick) Urine Blood Urine Nitrite Urine Bilirubin Urobilinogen Dipstick Urine Leukocytes Urine WBC (Auto) Urine RBC (Auto) U Epithel Cells (Auto) Urine Bacteria (Auto) Urine Opiates Screen Ur Oxycodone Screen Ur Methadone, Qual Ur Barbiturates Screen Ur Phencyclidine Scrn Ur Amphetamines Screen U Benzodiazepines Scrn Urine Cocaine Screen U Cannabinoids Screen 01/19/20 01/19/20 01/19/20 02:45 02:45 05:45 WBC 9.88 RBC 4.83 Hgb 14.0 Hct 43.2 MCV 89.4 MCH 29.0 MCHC 32.4 L RDW Std Deviation 15.0 H Plt Count 193 MPV 10.3 Immature Gran % (Auto) 0.3 Neut % (Auto) 75.9 H Lymph % (Auto) 16.5 L [place] % (Auto) 7.0 Eos % (Auto) 0.1 Baso % (Auto) 0.2 Immature Gran # (Auto) 0.03 Neut # (Auto) 7.50 H Lymph # (Auto) 1.63 [place] # (Auto) 0.69 H Eos # (Auto) 0.01 Baso # (Auto) 0.02 PT INR PTT (Actin FS) Sodium Potassium Chloride Carbon Dioxide Anion Gap BUN Creatinine Estimated GFR/1.73 m2 BUN/Creatinine Ratio Glucose Calculated Osmolality Calcium Magnesium Total Bilirubin AST ALT Alkaline Phosphatase Creatine Kinase Creatine Kinase Index CK-MB (CK-2) Troponin T High Sens Total Protein Albumin Globulin Albumin/Globulin Ratio Plasma Lactate 7.1 H* 5.4 H* Urine Source Urine Color Urine Turbidity Urine pH Ur Specific [place] Urine Protein Ur Glucose (Stick) Ur Ketones (Stick) Urine Blood Urine Nitrite Urine Bilirubin Urobilinogen Dipstick Urine Leukocytes Urine WBC (Auto) Urine RBC (Auto) U Epithel Cells (Auto) Urine Bacteria (Auto) Urine Opiates Screen Ur Oxycodone Screen Ur Methadone, Qual Ur Barbiturates Screen Ur Phencyclidine Scrn Ur Amphetamines Screen U Benzodiazepines Scrn Urine Cocaine Screen U Cannabinoids Screen 01/19/20 01/19/20 06:00 06:00 WBC RBC Hgb Hct MCV MCH MCHC RDW Std Deviation Plt Count MPV Immature Gran % (Auto) Neut % (Auto) Lymph % (Auto) [place] % (Auto) Eos % (Auto) Baso % (Auto) Immature Gran # (Auto) Neut # (Auto) Lymph # (Auto) [place] # (Auto) Eos # (Auto) Baso # (Auto) PT INR PTT (Actin FS) Sodium Potassium Chloride Carbon Dioxide Anion Gap BUN Creatinine Estimated GFR/1.73 m2 BUN/Creatinine Ratio Glucose Calculated Osmolality Calcium Magnesium Total Bilirubin AST ALT Alkaline Phosphatase Creatine Kinase Creatine Kinase Index CK-MB (CK-2) Troponin T High Sens Total Protein Albumin Globulin Albumin/Globulin Ratio Plasma Lactate Urine Source CLEAN CATCH Urine Color YELLOW Urine Turbidity CLEAR Urine pH 6.0 Ur Specific [place] 1.015 Urine Protein 100 A Ur Glucose (Stick) NEGATIVE Ur Ketones (Stick) NEGATIVE Urine Blood MODERATE A Urine Nitrite NEGATIVE Urine Bilirubin NEGATIVE Urobilinogen Dipstick 2 A Urine Leukocytes NEGATIVE Urine WBC (Auto) <10 Urine RBC (Auto) <10 U Epithel Cells (Auto) <10 Urine Bacteria (Auto) NEGATIVE Urine Opiates Screen PRESUMPTIVE POSITIVE A Ur Oxycodone Screen NONE DETECTED Ur Methadone, Qual NONE DETECTED Ur Barbiturates Screen NONE DETECTED Ur Phencyclidine Scrn NONE DETECTED Ur Amphetamines Screen PRESUMPTIVE POSITIVE A U Benzodiazepines Scrn NONE DETECTED Urine Cocaine Screen NONE DETECTED U Cannabinoids Screen PRESUMPTIVE POSITIVE A Orders Category Date Time Status Cardiac Monitoring NOW Care 01/19/20 02:21 Active IV Insertion NOW Care 01/19/20 02:21 Completed NEWS Score >or=5:Order NEWS Bundle S.O. NOW Care 01/19/20 01:58 Active Notify Provider of NEWS Score NOW Care 01/19/20 02:21 Active CHEST-1 VIEW [RAD] Stat Exams 01/19/20 02:[address] HEAD W/O CONTRAST [CT] Stat Exams 01/19/20 03:33 Taken BLOOD CULTURE [BLDCUL] Stat Lab 01/19/20 02:46 Results CBC WITH ELECTRONIC DIFF [HEME] Stat Lab 01/19/20 02:45 Completed CK PROFILE [SP CHEM] Stat Lab 01/19/20 02:45 Completed COMPREHENSIVE METABOLIC PANEL [CHEM] Stat Lab 01/19/20 02:45 Completed LACTATE, PLASMA [CHEM] Lab 01/19/20 02:45 Completed LACTATE, PLASMA [CHEM] Lab 01/19/20 05:45 Completed LACTATE, PLASMA [CHEM] Lab 01/19/20 08:30 Uncollected MAGNESIUM [CHEM] Stat Lab 01/19/20 02:45 Completed PROTIME WITH INR [COAG] Stat Lab 01/19/20 02:45 Completed PTT [COAG] Stat Lab 01/19/20 02:45 Completed TROPONIN T HIGH SENSITIVITY Stat Lab 01/19/20 02:45 Completed UA NIMS W/REFLEX CULT [URINALYSIS] Stat Lab 01/19/20 06:00 Completed URINE DRUG SCREEN Stat Lab 01/19/20 06:00 Completed 0.9% Sodium Chloride Inj [Ns] 1,000 ml Med 01/19/20 07:45 Discontinued .ROUTE As directed 0.9% Sodium Chloride Inj [Ns] 1,000 ml Med 01/19/20 06:02 Discontinued IV 999 mls/hr 0.9% Sodium Chloride Inj [Ns] 1,000 ml Med 01/19/20 07:39 Active IV 999 mls/hr Azithromycin 500 mg/Ns [Zithromax 500 mg/Ns] Med 01/19/20 06:12 Discontinued 500 mg in 250 ml IV NOW CefTRIAXONE [Rocephin] 1 gm Med 01/19/20 06:12 Discontinued 0.9% Sodium Chloride Inj [Ns] 50 ml IV NOW O2 Per Protocol Stat Oth 01/19/20 02:21 Completed EKG [EKG] Stat Ther 01/19/20 01:35 Draft Result Diagrams: 01/19/20 02:45 01/19/20 02:45 - XRAY 1 XRAY Study: Chest Impression: Abnormal XRAY Interpretation: RLL infiltrate, Cardiomegaly - CONSULTS/PCP/HOSPITALIST Notification #1 *Consult/PCP/Hospitalist*: d/w Dr Rice, he will inform the morning team Time Discussed: 06:12 Consult Disposition: Admit Departure - Departure Date of Disposition Decision: 01/19/20 Time of Disposition Decision: 06:05 DIAGNOSIS: Syncope, Bradycardia, Elevated troponin, Substance abuse Disposition: ADMITTED INPATIENT 09 Certified Medical Emergency: Emergent Condition: Stable Referrals and Follow-Ups: None,PCP [Primary Care Provider] - - Critical Care Note This patient required my direct & personal management of CC.: No Attestation - Physician/ JODY Attestation Patient care was provided by Advanced Practice Provider:: No The physician spent face to face time with patient:: Yes Advanced Practice Provider documentation review:: Supervising physician onsite and consulted in the evaluation and care of this patient. The physician did have a face to face encounter with the patient.
--- NOTE | 2020-01-19 02:50 | EKG Report ---
Test Performed on : 01/19/2020 01:47:21 AM Test Reason : SYNCOPE Blood Pressure : / mmHG Vent. Rate : 093 BPM Atrial Rate : 093 BPM P-R Int : 186 ms QRS Dur : 146 ms QT Int : 430 ms P-R-T Axes : 069 -54 109 degrees QTc Int : 534 ms Sinus rhythm. with occasional premature ventricular complexes. Possible Left atrial enlargement Left axis deviation Left ventricular hypertrophy with QRS widening and repolarization abnormality Inferior infarct , age undetermined Abnormal ECG When compared with ECG of 17-SEP-2019 12:25, (Unconfirmed) premature ventricular complexes. are now present Left bundle branch block is no longer present Inferior infarct is now present Unconfirmed Result
[2020-01-19 03:10] LABS: BASO# 0.02 X1000 (0.0-0.2); BASO% 0.2 % (0.0-0.8); EOS# 0.01 X1000 (0.0-0.7); EOS% 0.1 % (0.0-10.0); HEMATOCRIT 43.2 % (42.0-52.0); IMM GRAN# 0.03 X1000 (0.0-0.04); IMM GRAN% 0.3 % (0.0-0.5); LYMPH# 1.63 X1000 (1.2-3.4); LYMPH% 16.5 % (20.5-51.1); MCHC 32.4 g/dL (33-37); MCV 89.4 FL (81-99); MONO# 0.69 X1000 (0.11-0.59); MPV 10.3 FL (7.4-10.4); NEUT% 75.9 % (42.2-75.2); PLT 193 X1000 (130-400); RBC 4.83 XMIL (4.7-6.1); WBC 9.88 X1000 (4.8-10.8)
[2020-01-19 03:38] LABS: INR 1.12; PROTIME 14.6 Seconds (11.0-16.0)
[2020-01-19 03:39] LABS: PTT 29.6 Seconds (22.3-41.8)
[2020-01-19 03:51] LABS: ALB/GLOB RATIO 0.9; CALCIUM 9.2 mg/dL (8.8-10.2); CREATININE 1.6 mg/dL (0.7-1.2); MAGNESIUM 2.1 mg/dL (1.5-2.7); POTASSIUM 3.9 mmol/L (3.5-5.1); TOTAL BILIRUBIN 1.03 mg/dL (0.20-1.00); TOTAL PROTEIN 8.4 g/dL (6.3-8.3)
[2020-01-19 04:08] LABS: CK INDEX 2.5 (0.0-2.5); CK-MB 9.65 ng/mL (0.0-5.0)
[2020-01-19] MEDS ORDERED: NS 1,000 ML IV ONE ×2 (06:02→07:39)
[2020-01-19 06:09] LABS: URINE SOURCE CLEAN CATCH
[2020-01-19] MEDS ORDERED: ZITHROMAX 500 MG/NS 500 MG/250 ML IVPB IV ONE (06:12)
[2020-01-19] MEDS ORDERED: ROCEPHIN 1 GM in NS 50 ML IV ONE (06:12)
[2020-01-19 06:13] LABS: BILIRUBIN URINE NEGATIVE (NEGATIVE); BLOOD URINE MODERATE (NEGATIVE); COLOR YELLOW; GLUCOSE URINE NEGATIVE (NEGATIVE); KETONE URINE NEGATIVE (NEGATIVE); LEUKOCYTES URINE NEGATIVE (NEGATIVE); NITRITE URINE NEGATIVE (NEGATIVE); PROTEIN URINE 100 mg/dL (NEGATIVE); SP GRAVITY URINE 1.015; TURBIDITY URINE CLEAR (CLEAR); UROBILINOGEN URINE 2 mg/dL (NORMAL)
[2020-01-19 06:14] LABS: UR EPITHELIAL CELLS <10 /HPF (<10); URINE BACTERIA NEGATIVE /HPF; URINE RBC <10 /HPF (<10); URINE WBC <10 /HPF (<10)
[2020-01-19 06:32] LABS: UR AMPHETAMINES QUAL PRESUMPTIVE POSITIVE (NONE DETECT); UR BARBITUATES QUAL NONE DETECTED (NONE DETECT); UR BENZODIAZEPIN QUAL NONE DETECTED (NONE DETECT); UR CANNABINOIDS QUAL PRESUMPTIVE POSITIVE (NONE DETECT); UR COCAINE QUAL NONE DETECTED (NONE DETECT); UR METHADONE QUAL NONE DETECTED (NONE DETECT); UR OPIATES QUAL PRESUMPTIVE POSITIVE (NONE DETECT); UR OXYCODONE QUAL NONE DETECTED (NONE DETECT); UR PCP QUAL NONE DETECTED (NONE DETECT)
--- NOTE | 2020-01-19 07:10 | Diag Imaging Result Doc PS360 ---
CHEST-1 VIEW - 01/19/2020 INDICATION: CP COMPARISON: 09/17/2019 FINDINGS: Stable pacemaker. Stable cardiomegaly. There is significant pulmonary vascular congestion. There are small bilateral pleural effusions. There is some hazy dependent atelectasis or infiltrate in the right lung base similar to prior. IMPRESSION: Nonspecific findings. Likely related to congestive heart failure. Correlate clinically. Electronically signed by Richie Parker 01/19/2020 7:08 AM
[2020-01-19] MEDS ORDERED: NS 1,000 ML ONE (07:45)
--- NOTE | 2020-01-19 08:32 | Diag Imaging Result Doc PS360 ---
CT HEAD W/O CONTRAST - 01/19/2020 INDICATION: syncope COMPARISON: 09/15/2014 FINDINGS: The ventricles and sulci are normal in size and contour. No intracranial mass or hemorrhage. The skull is intact. The sinuses mastoids and middle ears are clear. IMPRESSION: Negative exam. This exam was performed using automated exposure control, adjustment of mA or kV according to patient size, and/or use of iterative reconstruction technique Electronically signed by Richie Parker 01/19/2020 8:29 AM
[2020-01-19] MEDS ORDERED: TYLENOL PO PRN (09:29)
[2020-01-19] MEDS ORDERED: ZOFRAN IV PRN (09:29)
[2020-01-19] MEDS ORDERED: DUONEB (A & A) INH PRN (09:29)
[2020-01-19 09:35] LABS: ALLEN TEST NO; BE -4.1 mmoll (-3.0-3.0); BLOOD TYPE ARTERIAL; HCO3-(ACT) 21.6 mmoll (20.0-26.0); METHB 0.7 % (0.0-1.5); O2(CT) 19.2 mL/dL (15.0-23.0); O2HB 94.2 % (95.0-99.0); PCO2(98.6) 44 mmHg (35-45); PO2(98.6) 95 mmHg (60-100); SAMPLE BLOOD; SAO2 98.8 % (95.0-100.0); THB 14.4 g/dL (11.5-17.4); pH(98.6) 7.31 (7.35-7.45)
[2020-01-19 09:36] LABS: MODALITY CANNULA
--- NOTE | 2020-01-19 09:50 | HISTORY AND PHYSICAL ---
PRIMARY CARE PROVIDER: Dr. Cal Coyne. BOW TACKER: Dr. London Ayers. CHIEF COMPLAINT: Feeling poorly. HISTORY OF PRESENT ILLNESS: Mr. Kathleen is a 64-year-old gentleman, who carries a past medical history of nonischemic cardiomyopathy, chronic diverticulitis, systolic congestive heart failure, COPD, cardiac arrest in atrial fibrillation, who was brought into the ED after he was found down at home by his family, reported heart rate in the 30s. We do not have any records of that. We do not have any EMS records of that. The patient could not recall the events that led up to his syncopal episode. However, he does report that he has been feeling poorly with no strength over the last couple of weeks. He has reported some constipation, shortness of breath and bilateral lower extremity edema over a week as well as a small productive cough with yellowish sputum, easy satiety. He reports that he was shocked by his AICD 2 months ago. However, he reported to the ED a week ago. He denies any chest pain, heart palpitations, fever, chills, sore throat, dry cough, any sick contacts. No recent travel. He reports he watches his fluid and salt intake. He reports no weight gain. Actually, he reported a 10 pound weight loss. He only weighs himself once a month. Workup in the ED shows acute on chronic kidney disease, slightly elevated troponin, positive lactate at 7.1. He was given 2 L fluid bolus, placed on Rocephin and azithromycin. Chest x-ray shows congestive heart failure and a possible infiltrate in the right lung base. We will continue treatment for sepsis, as well as congestive heart failure exacerbation. ProBNP is currently pending. He does have bilateral lower extremity pitting edema and some rales, left greater than right. PAST MEDICAL HISTORY: Per HPI. PAST SURGICAL HISTORY: Colectomy with colostomy, AICD, hernia surgery. FAMILY HISTORY: Reviewed and noncontributory. SOCIAL HISTORY: He lives with family. He smokes 1 pack of cigarettes per day, 1 marijuana joint per week. Alcohol: About a 6 pack of beer every 2 to 3 days, diony on occasion. He claims he quit amphetamines years ago. However, he is positive; it could be a false positive. He was pretty forthcoming. ALLERGIES: No known drug allergies. MEDICATIONS: Home medications are being compiled. All he can remember is that he takes digoxin and Lasix and a pain pill. REVIEW OF SYSTEMS: Completely negative, except for those mentioned in HPI. PHYSICAL EXAMINATION: VITAL SIGNS: Temperature is 97.4 degrees, heart rate 90, respirations 14, blood pressure 135/95, O2 is 92% on 3 L nasal cannula. GENERAL: Mr. Kathleen is a 64-year-old gentleman, who is sitting up in the bed in no acute distress. He does fall asleep easily, however he awakens easily. HEENT: Atraumatic, normocephalic. PERRL. He does have some redness noted to his left eye. NECK: Supple. Trachea midline. CV: Tachycardic. Did not appreciate any murmurs, gallops, or rubs. RESPIRATORY: Lung sounds reveal crackles in the left bases, decreased on the right. No rhonchi or wheezes. ABDOMEN: Colostomy noted. Soft, nontender, nondistended. Positive bowel sounds 4 quadrants. LOWER EXTREMITIES: Lower extremities with 2+ to 3+ pitting edema. NEUROLOGIC: No focal deficits noted. DIAGNOSTIC DATA: 1. Head CT: Negative exam. 2. Chest x-ray: Likely congestive heart failure, atelectasis or infiltrates in the right base. 3. EKG: Sinus rhythm with occasional PVCs. LABORATORY DATA: White count 9, hemoglobin and hematocrit 14 and 43, platelet count is 193. Sodium 143, potassium 3.9, bicarbonate is 20, anion gap of 23. BUN 25, creatinine 1.6, blood glucose is 108, magnesium 2.1. Total bilirubin 1.03, AST 43, alkaline phosphatase 156. CK is 390. First troponin is 77. ProBNP currently pending. First lactate 7.1; repeat is 5.4. Toxicology screen positive for opiates, amphetamines and cannabinoids. Recheck an ABG. ASSESSMENT AND PLAN: 1. Sepsis rule in, possibly pneumonia in the right lower base. The patient did get a 2 liter fluid bolus. Was placed on Rocephin and azithromycin. We will continue with aggressive pulmonary toilet and bronchodilators. 2. Probable right lower lung pneumonia. 3. Acute systolic congestive heart failure exacerbation. We will continue with Lasix twice daily. Consult Cardiology. Get an echocardiogram on Tuesday. 4. Syncopal episode. Reported heart rate was in the 30s. We do not have the Emergency Medical Services records indicating that the patient has been anywhere from 90s to low 100s since admission. 5. Acute kidney injury on chronic kidney disease. Continue to monitor his kidney function closely given we are putting him on intravenous Lasix. 6. Ischemic cardiomyopathy. Last ejection fraction reported of 15 to 20 percent. We will continue to trend his cardiac enzymes. He complains of no chest pain. 7. Chronic obstructive pulmonary disease. Does not appear to be in exacerbation; however, we are going to go ahead and check arterial blood gas. There were no wheezes noted. We will continue on supplemental oxygen. 8. Status post cardiac arrest prior to his automatic implantable cardioverter defibrillator placement, [employer] device. He reports it went off 2 months ago. He told the emergency department it went off a week ago. 9. History of alcohol and tobacco abuse, as well as marijuana. We will continue daily cessation discussions. 10. Chronic diverticulitis, status post colectomy with colostomy. 11. Anion gap metabolic acidosis Further recommendation to follow physician evaluation, laboratory and diagnostic data. Dictated by KOSTA Cisneros for Radha Burns MD cc: MD Cal Piña MD Peter Johnson, MD
[2020-01-19] MEDS: LASIX IV SCH ×2 (09:57→21:44)
[2020-01-19 11:22] LABS: CK INDEX 2.3 (0.0-2.5); CK-MB 31.48 ng/mL (0.0-5.0)
[2020-01-19] MEDS: DUONEB (A & A) INH SCH ×3 (11:30→22:52)
[2020-01-19] MEDS: NORCO-10 PO SCH ×2 (15:05→21:43)
--- NOTE | 2020-01-19 15:25 | CARDIOLOGY CONSULTATION ---
DATE: 01/19/2020 CHIEF COMPLAINT ON PRESENTATION: Syncope. HISTORY OF PRESENT ILLNESS: Mr. Kathleen is a 64-year-old black male who carries a history of a nonischemic cardiomyopathy, last seen by Dr. Ayers in November of 2019. He was in his usual state of health yesterday cooking in the kitchen when he apparently had an episode of syncope. This was an episode that occurred without warning. He had no preceding pain or palpitations. He cannot recall any lightheadedness either. His found him on the floor. He is unsure exactly how long he was out for as he was cooking and there was some smoke in the room when she found him. He had no pain after the episode. He reports he has had ICD shocks in the past, but those were proceeded by lightheaded spells. PAST MEDICAL HISTORY: 1. Significant for significant for nonischemic cardiomyopathy. His last ejection fraction was in September of 2019 showing an EF of 15% to 20%. He had a four-chamber dilatation. EF 15% to 20%. He had pulmonary hypertension with an RV systolic pressure of 82. His last cardiac cath was in July of 2014 showing an EF of 15%. Normal coronaries. 2. COPD. 3. ICD implantation. SOCIAL HISTORY: . One pack of cigarettes per day. A 6-pack of beer every 2 to 3 days. REVIEW OF SYSTEMS: A 10-system review of systems is negative except for those things mentioned in the HPI. FAMILY HISTORY: Significant for hypertension. PHYSICAL EXAMINATION: Vital Signs: He is afebrile. His heart rate is 94, his blood pressure is 120/83. His I's and O's are limited. General: No acute distress. HEENT: Oropharynx is moist. Poor dentition. Eye examination is pink conjunctivae. White sclerae. Neck: Examination shows no obvious thyromegaly or thyroid tenderness. Cardiovascular: He sounds to be in a regular rate and rhythm. He has 2+ bilateral lower extremity edema. He has no murmurs. He has an elevated JVP. Chest: Exam sounds relatively clear. He has a poor inspiratory effort. Abdomen: Soft, nontender, nondistended. He has no obvious organomegaly. Skin: Warm and dry throughout without any rashes. Neurological: He is moving all extremities well. He has no lateralizing deficits. PERTINENT DATA: His chest x-ray shows cardiomegaly with pulmonary vascular congestion present. His electrocardiogram demonstrates sinus rhythm, PVCs, left bundle branch block. LABORATORY DATA: Shows a white count of 9.8, hematocrit 43, platelet count 193,000. Sodium 143, potassium is 3.9, BUN 25, creatinine is 1.6. His proBNP was 27,000. His MB was 31. His troponin initially was 77, subsequent 84, those checks were 8 hours apart. ASSESSMENT: Mr. Felton is a 64-year-old gentleman with nonischemic cardiomyopathy who suffered an episode of syncope. PLAN: He appears to be in heart failure. I have discontinued the troponins as this does not appear to be consistent with ACS and he has no history of coronary disease. We will check out his device. Dr. Ayers saw him in November and at that time he was Entresto but it is not listed on his home medications. I will restart him at 24/ twice daily. We will continue to diurese him. Laboratories checked in the morning. cc: Som Wilkinson MD
[2020-01-19] MEDS: ENTRESTO 24 MG-26 MG TABLET PO SCH (21:43)
[2020-01-19] MEDS: AMBIEN PO SCH (21:46)
[2020-01-20] MEDS: DUONEB (A & A) INH SCH ×4 (04:07→22:57)
[2020-01-20] MEDS: ROCEPHIN 1 GM in NS 50 ML IV SCH (06:31)
[2020-01-20] MEDS: ZITHROMAX 500 MG/NS 500 MG/250 ML IVPB IV SCH (06:36)
[2020-01-20 06:46] LABS: BASO# 0.03 X1000 (0.0-0.2); BASO% 0.6 % (0.0-0.8); EOS# 0.01 X1000 (0.0-0.7); EOS% 0.2 % (0.0-10.0); HEMATOCRIT 39.2 % (42.0-52.0); HEMOGLOBIN 12.8 g/dL (14.0-18.0); LYMPH# 0.87 X1000 (1.2-3.4); LYMPH% 16.1 % (20.5-51.1); MCH 29.1 PG (27-31); MCHC 32.7 g/dL (33-37); MCV 89.1 FL (81-99); MONO# 0.45 X1000 (0.11-0.59); MONO% 8.3 % (1.7-9.3); MPV 11.1 FL (7.4-10.4); NEUT# 4.06 X1000 (1.4-6.5); NEUT% 74.8 % (42.2-75.2); PLT 166 X1000 (130-400); RDW 14.8 % (11.5-14.5); WBC 5.42 X1000 (4.8-10.8)
[2020-01-20 07:02] LABS: AGAP 11; ALB/GLOB RATIO 1.1; ALBUMIN 3.6 g/dL (3.5-5.0); ALKALINE PHOSPHATASE 106 U/L (32-122); BUN 27 mg/dL (8-22); CALCIUM 8.7 mg/dL (8.8-10.2); CHLORIDE 96 mmol/L (98-107); COSMO 280; CREATININE 1.3 mg/dL (0.7-1.2); ESTIMATED GFR > 60; GLUCOSE 109 mg/dL (70-104); GOT 75 U/L (10-34); GPT 27 U/L (10-44); MAGNESIUM 1.7 mg/dL (1.5-2.7); POTASSIUM 4.5 mmol/L (3.5-5.1); SODIUM 137 mmol/L (136-145); TCO2 30 mmol/L (25-35); TOTAL BILIRUBIN 1.03 mg/dL (0.20-1.00); TOTAL PROTEIN 6.8 g/dL (6.3-8.3)
[2020-01-20 07:17] LABS: T4 4.97 ug/dL (4.60-12.00); TSH 1.64 uIUmL (0.27-4.20)
[2020-01-20] MEDS ORDERED: MAGNESIUM SULFATE 2 GM/S.W.I. 2 GM/50 ML IVPB IV ONE (09:00)
--- NOTE | 2020-01-20 09:06 | Diag Imaging Result Doc PS360 ---
CHEST-PORTABLE - 01/20/2020 INDICATION: CHF COMPARISON: 01/19/2020 FINDINGS: There is worsening in the central pulmonary vascular congestion. Stable cardiomegaly. Stable small bilateral pleural effusions. There is some hazy pulmonary edema in the lung bases. IMPRESSION: Slight worsening from prior. Electronically signed by Richie Parker 01/20/2020 9:03 AM
[2020-01-20] MEDS: LANOXIN PO SCH (09:09)
[2020-01-20] MEDS: NORCO-10 PO SCH ×3 (09:09→22:41)
[2020-01-20] MEDS: LASIX IV SCH ×2 (09:10→21:59)
[2020-01-20] MEDS: ASPIRIN PO SCH (09:10)
[2020-01-20] MEDS: ENTRESTO 24 MG-26 MG TABLET PO SCH ×2 (09:10→21:58)
[2020-01-20] MEDS: LOPRESSOR PO SCH (09:11)
--- NOTE | 2020-01-20 10:04 | EKG Report ---
Test Performed on : 01/20/2020 06:05:47 AM Test Reason : Heart Failure Admission Blood Pressure : / mmHG Vent. Rate : 099 BPM Atrial Rate : 099 BPM P-R Int : 178 ms QRS Dur : 130 ms QT Int : 404 ms P-R-T Axes : 078 -66 103 degrees QTc Int : 518 ms Sinus rhythm. with occasional premature ventricular complexes. Possible Left atrial enlargement Left axis deviation Left ventricular hypertrophy with QRS widening and repolarization abnormality Abnormal ECG No previous ECGs available Confirmed by Gurpreet BROWN, Kurtis Mclain ([id number]) on 01/22/2020 9:40:01 AM
--- NOTE | 2020-01-20 12:24 | CARDIOLOGY PROGRESS NOTE ---
DATE: 01/20/2020 SUBJECTIVE: Mr. Kathleen reports his breathing has improved. He has no orthopnea, no chest pain. PHYSICAL EXAMINATION: He is afebrile. Heart rates are in the 90s to low 100. Most recent blood pressure is 112/82. His Is and Os are inaccurate secondary to 3 voids not measured. General: No acute distress. Cardiovascular: He sounds to be in a regular rate and rhythm. He has no murmurs. He has no S3. He has 1+ bilateral lower extremity edema that appears to be improved from yesterday. In addition, his JVP continues to be distended but appears less so today. Chest has reduced breath sounds in the right base. No increased work of breathing. Abdomen is soft, nontender. PERTINENT DATA: White count 5.4, hematocrit 39, platelet count 166,000. His sodium is 137, potassium is 4.5, BUN 27, creatinine is 1.3 (creatinine is down from 1.6 yesterday). ProBNP is 20,118, down from 27,000. ASSESSMENT: Mr. Kathleen is a 64-year-old gentleman with a history of nonischemic cardiomyopathy. PLAN: He is opiate positive, amphetamine positive, and marijuana positive. In addition, he continues to drink alcohol. This is likely contributing to his repetitive episodes, in addition to noncompliance with his medications. He was not taking his Entresto at home. I suspect he is also not following a sodium restriction. We have added back in Entresto. We are diuresing him. He seems to be improving. I agree with the addition of the digoxin. We will check his device tomorrow to evaluate his syncopal episode. cc: Som Wilkinson MD
--- NOTE | 2020-01-20 16:28 | PROGRESS NOTE ---
DATE: 01/20/2020 SUBJECTIVE: The patient is resting comfortably in bed. No acute events noted overnight. He has no complaints at this time. He is having regular bowel movements. OBJECTIVE: Vital Signs: Temperature 97.6 degrees, blood pressure 112/82, heart rate 96, respirations 17, O2 saturations 93% on room air, intake 720, output 350. General: This is a chronically ill-appearing elderly male lying in bed in no acute distress. Heart: S1, S2 normal. Lungs: Equal air entry bilaterally. No wheezing, no rales. Abdomen: Positive bowel sounds. Soft, nontender, nondistended. Extremities: No edema, no cyanosis. Neuro: The patient is alert and oriented x3. LABS: Hemoglobin 12, hematocrit 39, platelets 166,000, white blood cell count 5.4. Sodium 137, potassium 4.5, chloride 96, CO2 30, BUN 27, creatinine 1.3, glucose 109, magnesium 1.7, calcium 8.7, AST 75, ALT 27, alkaline phosphatase 106. Chest x-ray shows worsening. ASSESSMENT AND PLAN: 1. Acute on chronic systolic congestive heart failure exacerbation. Continue on diuretic therapy. The patient's heart failure medications have been adjusted by the tapper supervisor. The patient has been advised to quit drinking alcohol and to maintain a salt restriction and fluid restriction. 2. Nonischemic cardiomyopathy status post automated implantable cardioverter defibrillator discharges. The patient's device will be interrogated tomorrow. 3. Acute kidney injury on chronic kidney disease. Improved. Continue to monitor closely. 4. Atrial fibrillation. Continue on the current medications. 5. Tobacco dependence. The patient has been counseled about smoking cessation. 6. Alcohol abuse. The patient has been counseled about alcohol cessation. 7. Deep vein thrombosis prophylaxis. Start the patient on heparin. 8. Disposition. The plan of care was discussed with the patient. The patient's was provided with an update on the plan of care. cc: MD JULISSA Piña
[2020-01-20] MEDS: HEPARIN SUBQ SCH (22:42)
[2020-01-20] MEDS: AMBIEN PO SCH (22:42)
[2020-01-21] MEDS: NICODERM PATCH TD PRN ×2 (01:25→23:51)
[2020-01-21] MEDS: DUONEB (A & A) INH SCH ×4 (03:36→21:29)
[2020-01-21 05:54] LABS: BASO# 0.05 X1000 (0.0-0.2); BASO% 1.1 % (0.0-0.8); EOS# 0.05 X1000 (0.0-0.7); EOS% 1.1 % (0.0-10.0); HEMATOCRIT 42.8 % (42.0-52.0); HEMOGLOBIN 13.9 g/dL (14.0-18.0); LYMPH# 1.05 X1000 (1.2-3.4); LYMPH% 22.1 % (20.5-51.1); MCHC 32.5 g/dL (33-37); MCV 89.4 FL (81-99); MONO# 0.43 X1000 (0.11-0.59); MPV 10.9 FL (7.4-10.4); NEUT# 3.18 X1000 (1.4-6.5); NEUT% 66.7 % (42.2-75.2); PLT 183 X1000 (130-400); RBC 4.79 XMIL (4.7-6.1); RDW 14.8 % (11.5-14.5); WBC 4.76 X1000 (4.8-10.8)
[2020-01-21 06:06] LABS: CALCIUM 8.7 mg/dL (8.8-10.2); CREATININE 1.5 mg/dL (0.7-1.2); PHOSPHORUS 2.8 mg/dL (2.7-4.5); POTASSIUM 4.1 mmol/L (3.5-5.1)
[2020-01-21] MEDS: ZITHROMAX 500 MG/NS 500 MG/250 ML IVPB IV SCH (07:54)
[2020-01-21] MEDS: ROCEPHIN 1 GM in NS 50 ML IV SCH (09:21)
[2020-01-21] MEDS: ASPIRIN PO SCH (09:25)
[2020-01-21] MEDS: ENTRESTO 24 MG-26 MG TABLET PO SCH ×2 (09:26→20:26)
[2020-01-21] MEDS: LOPRESSOR PO SCH (09:26)
[2020-01-21] MEDS: NORCO-10 PO SCH ×3 (09:26→20:24)
[2020-01-21] MEDS: HEPARIN SUBQ SCH ×2 (09:27→20:27)
--- NOTE | 2020-01-21 10:01 | Diag Imaging Result Doc PS360 ---
EXAM: CT THORAX W/O CONTRAST 01/21/2020 HISTORY: pneumonia TECHNIQUE: This exam was performed using automated exposure control, adjustment of mA or kV according to patient size, and/or use of iterative reconstruction technique. COMMENT: The current examination is compared with 10/25/2019. There are bilateral pleural effusions more so on the right than the left. The right-sided effusion is slightly larger than on the previous study. The heart is enlarged and there is a pacemaker lead in the right ventricle and the right atrium. There is no evidence of aortic distention. There is a partially calcified pleural-based mass in the left apex which was also present at the time the previous study. This does not appear to have changed significantly in size. There are multiple cystic appearing lucencies in the liver. There is an apparent hernia anteriorly in the upper abdomen containing a segment of the colon which is only partially imaged. There is worsened atelectasis or pneumonia in the dependent portion of the right lower lobe. There are emphysematous changes bilaterally particularly in the upper lobes. The regional skeleton is stable in appearance. IMPRESSION: Worsened right pleural effusion and right lower lobe atelectasis versus pneumonia. Electronically signed by Brennen Abernathy 01/21/2020 9:58 AM
[2020-01-21] MEDS: LANOXIN PO SCH (10:19)
[2020-01-21 10:22] LABS: ALLEN TEST NO; BLOOD TYPE ARTERIAL; HCO3-(ACT) 27.1 mmoll (20.0-26.0); METHB 1.2 % (0.0-1.5); O2(CT) 17.3 mL/dL (15.0-23.0); O2HB 90.6 % (95.0-99.0); PCO2(98.6) 39 mmHg (35-45); PO2(98.6) 60 mmHg (60-100); SAMPLE BLOOD; SAO2 93.9 % (95.0-100.0); THB 13.6 g/dL (11.5-17.4); pH(98.6) 7.45 (7.35-7.45)
[2020-01-21 10:23] LABS: MODALITY ROOM AIR
[2020-01-21] MEDS ORDERED: LASIX IV ONE (10:30)
--- NOTE | 2020-01-21 13:00 | CARDIOLOGY PROGRESS NOTE ---
DATE: 01/21/2020 SUBJECTIVE: The patient denies any shortness of breath. No orthopnea. He report his edema has been improving. PHYSICAL EXAMINATION: He is afebrile. Heart rate 85. His blood pressure is 117/80. His I's and O's are inaccurate. He has a total of 6 continent voids not measured and 1 incontinent void not measured. General: He is in no acute distress. Cardiovascular: Regular rate and rhythm. He has no murmurs he has 1+ bilateral lower extremity edema. Chest: Exam has mild reduction in breath sounds in the right. He has no increased work of breathing. Abdomen: Soft, nontender. PERTINENT DATA: His CT shows a worsened right pleural effusion with right lower lobe atelectasis versus pneumonia. His lab data shows a BUN and creatinine of 35 and 1.5. His magnesium level is 2. His sodium is 137. ASSESSMENT: Mr. Kathleen is a 64-year-old gentleman who presented with nonischemic cardiomyopathy. PLAN: I have increased his Lasix to 60 IV b.i.d. He will continue on Entresto as well as Toprol. He is on digoxin. We will continue with the current plan. He is also receiving antibiotics. Notes from the nursing staff have reported some episodic confusion in the patient. He has a significant drinking history and may be going through some very mild withdrawal. Review of his telemetry tracings by me have shown essentially sinus rhythm. cc: Som Wilkinson MD
--- NOTE | 2020-01-21 13:25 | PROGRESS NOTE ---
DATE: 01/21/2020 SUBJECTIVE: The patient is resting comfortably. He states that he feels okay. No acute events noted overnight. OBJECTIVE: Vital Signs: Temperature 98.1 degrees, blood pressure 117/80, heart rate 85, respirations 18, O2 saturation 97% on room air. General: This is a chronically ill-appearing, elderly male, lying in bed in no acute distress. Heart: S1, S2 normal. Regular rate and rhythm. Lungs: Diminished breath sounds at the bases. No crackles. Abdomen: Positive bowel sounds. Soft, nontender, nondistended. Extremities: There is 1+ edema bilaterally. Neurologic: The patient is alert and oriented x3. LABORATORY DATA: White blood cell count 4.7, hemoglobin 13, hematocrit 42, platelets 183,000. Sodium 137, potassium 4.1, chloride 96, CO2 of 26, BUN 35, creatinine 1.5, glucose 101, calcium 8.7. IMAGING: Chest CT reveals a worsened right pleural effusion and right lower lobe atelectasis versus pneumonia. ASSESSMENT AND PLAN: 1. Acute on chronic systolic congestive heart failure exacerbation. The patient's medications have been adjusted by the outbound telemarketing representative. Continue to monitor closely for improvement. 2. Possible pneumonia. The patient is on antibiotics. Continue with bronchodilator therapy as well as incentive spirometry. The procalcitonin level is currently pending. 3. Nonischemic cardiomyopathy status post automatic implantable cardioverter- defibrillator discharge. Aware. 4. Acute kidney injury on chronic kidney disease. Continue to monitor closely while on diuretic therapy. 5. Atrial fibrillation. The patient is in normal sinus rhythm. 6. Tobacco dependence. The patient has been counseled about smoking cessation. 7. Alcohol abuse. Will start the patient on Librium since he has been having some transient confusion since admission. 8. Deep vein thrombosis prophylaxis. Continue on heparin. cc: Radha Burns MD MTDD
[2020-01-21] MEDS: LIBRIUM PO SCH ×2 (15:03→20:26)
[2020-01-21] MEDS: AMBIEN PO SCH (20:26)
[2020-01-21] MEDS: LASIX IV SCH (20:27)
--- NOTE | 2020-01-21 21:52 | PULMONOLOGY CONSULTATION ---
DATE: 01/21/2020 REQUESTING CLINICIAN: Radha Burns MD REASON FOR CONSULTATION: Chronic obstructive pulmonary disease with possible pneumonia. HISTORY OF PRESENT ILLNESS: Mr. Kathleen is a 64-year-old black male with COPD, ongoing tobacco use, cardiomyopathy, prior lung biopsy for benign disease, cardiomyopathy with ongoing polysubstance abuse, who has not been taking his cardiac medications. He has been using amphetamines, opioids, and marijuana along with ongoing tobacco use. He has had increasing shortness of breath with increasing lower extremity edema. He denies cough. He denies sputum production. He denies fevers. He presented to the emergency room 01/19/2020 with syncopal episode and heart failure. CT scan was performed, which revealed pleural effusion with atelectasis at the right base. He has a partially calcified mass at the right apex, which has not changed. PAST MEDICAL HISTORY/PROBLEM LIST: 1. Nonischemic cardiomyopathy. 2. Severe pulmonary hypertension. 3. Chronic obstructive pulmonary disease. 4. History of asbestos exposure. 5. History of cardiopulmonary arrest with AICD placement. 6. History of colon resection. 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 Ongoing alcohol, tobacco, marijuana, opioids, and amphetamine use. FAMILY HISTORY: Noncontributory to current presentation. REVIEW OF SYSTEMS: Notable for increasing shortness of breath, but no signs or symptoms of infection. PHYSICAL EXAMINATION: General: Reveals a chronically ill-appearing male who reports he is improving with diuretics, although he does not appear to be significantly in negative fluid balance. Vital signs: Blood pressure 105/81, heart rate 91, respiratory rate 19, oxygen saturation 95% on room air. HEENT: Pupils are equal and reactive. Oropharynx appears clear. Neck: Supple. Chest: Reveals diminished breath sounds right base. Cardiac: S1, S2. Abdomen: Soft. Extremities: Reveal 2+ peripheral edema. IMPRESSION: A 64-year-old with: 1. Nicotine addiction and tobacco use with ongoing polysubstance abuse. 2. Noncompliance to medical regimen. 3. Severe pulmonary hypertension. 4. Acute systolic heart failure. 5. Pleural effusion. RECOMMENDATIONS: 1. Continue to re-educate and counseling services director Mr. Kathleen. He is aware that his current drug and tobacco use will likely shorten his whole life and continue to cause him to have cardiac dysfunction. 2. Treat heart failure as outlined by Dr. Wilkinson. 3. Consider followup CT scan in 6 months. cc: Ronal Larsen MD
[2020-01-21] MEDS ORDERED: ATIVAN IV ONE (23:38)
[2020-01-22] MEDS: ATIVAN IV ONE ×2 (01:31→02:30)
[2020-01-22] MEDS: DUONEB (A & A) INH SCH ×4 (03:33→21:10)
[2020-01-22 05:46] LABS: BASO# 0.06 X1000 (0.0-0.2); BASO% 1.5 % (0.0-0.8); EOS# 0.02 X1000 (0.0-0.7); EOS% 0.5 % (0.0-10.0); HEMATOCRIT 39.8 % (42.0-52.0); HEMOGLOBIN 13.1 g/dL (14.0-18.0); LYMPH# 0.91 X1000 (1.2-3.4); LYMPH% 22.3 % (20.5-51.1); MCH 29.1 PG (27-31); MCHC 32.9 g/dL (33-37); MCV 88.4 FL (81-99); MONO# 0.43 X1000 (0.11-0.59); MONO% 10.5 % (1.7-9.3); MPV 10.9 FL (7.4-10.4); NEUT# 2.66 X1000 (1.4-6.5); NEUT% 65.2 % (42.2-75.2); PLT 175 X1000 (130-400); RDW 14.5 % (11.5-14.5); WBC 4.08 X1000 (4.8-10.8)
[2020-01-22] MEDS: ZITHROMAX 500 MG/NS 500 MG/250 ML IVPB IV SCH (06:05)
[2020-01-22 06:06] LABS: AGAP 14; BUN 39 mg/dL (8-22); CALCIUM 8.8 mg/dL (8.8-10.2); CHLORIDE 97 mmol/L (98-107); COSMO 286; CREATININE 1.4 mg/dL (0.7-1.2); ESTIMATED GFR > 60; GLUCOSE 119 mg/dL (70-104); POTASSIUM 4.4 mmol/L (3.5-5.1); SODIUM 138 mmol/L (136-145); TCO2 27 mmol/L (25-35)
[2020-01-22] MEDS ORDERED: ATIVAN IV PRN (09:15)
--- NOTE | 2020-01-22 09:37 | PROGRESS NOTE ---
DATE: 01/22/2020 INTERVAL HISTORY: No acute events overnight except the patient did have episodes of agitation and confusion. SUBJECTIVE: Mr. Kathleen is drowsy, and then he woke up and started asking for a urinal. He denies any chest pain, shortness of breath or cough. He is partly confused so reliable history could not be explained. REVIEW OF SYSTEMS: A review of systems could not be explained. OBJECTIVE: Vitals: Temperature of 98.1 degrees, pulse 97, respiratory rate 14, blood pressure 94/73. He is saturating 100% on room air. HEENT: Oral cavity is moist. Lungs: Air entry bilaterally equal, except in the right inframammary region where it is decreased. There are inspiratory crackles in the right inframammary region. Cardiovascular: S1, S2 normal. No murmur, rub, or gallop. Not tachycardic. Abdomen: Soft. Nontender. Extremities: He has bilateral lower extremity edema. Neck: He has elevated jugular venous distention. Neurologic: He is drowsy but arousable, then becomes alert but he appears confused. He is oriented to himself not entirely with the situation. He denies using any recreational substances. LABS: WBC of 4,000, hemoglobin 13.1, platelets 175,000. He has a BUN of 39, creatinine 1.4. MICROBIOLOGY: No new data. INPUT AND OUTPUT: Negative 300 mL yesterday. ASSESSMENT AND PLAN: 1. Acute on chronic systolic congestive heart failure exacerbation, with ejection fraction of 15 to 20%, and history of nonischemic cardiomyopathy status post AICD. The patient also has a history of atrial fibrillation and cardiac arrest in the past. Continue intravenous Lasix, digoxin, metoprolol, and Entresto as per cardiology team's recommendation. I will monitor close input and output. The patient was counseled about stopping recreational substances. He understood it. 2. History of polysubstance abuse, with positive cannabis, marijuana, and amphetamine on presentation, and documented history of alcohol abuse. The patient is currently experiencing likely alcohol withdrawal with delirium tremens. Start high-dose intravenous thiamine, continue chlordiazepoxide, and start him on intravenous lorazepam as needed. 3. Acute kidney injury due to intravenous Lasix use, currently stable. 4. Right lung pleural effusion, with some right lower lobe atelectasis. The patient has been afebrile since presentation and has not had any leukocytosis. I will consider stopping intravenous antibiotic shortly. DISPOSITION: Continue to monitor patient in [facility]. Plan of care discussed with him and his questions have been answered. cc: Adrian Gallegos MD MTDD
[2020-01-22] MEDS: LIBRIUM PO SCH ×2 (09:38→20:59)
[2020-01-22] MEDS: NORCO-10 PO SCH ×3 (09:38→20:59)
[2020-01-22] MEDS: HEPARIN SUBQ SCH ×2 (09:39→21:00)
[2020-01-22] MEDS: ASPIRIN PO SCH (09:39)
[2020-01-22] MEDS: LOPRESSOR PO SCH (09:39)
[2020-01-22] MEDS: LANOXIN PO SCH (09:40)
[2020-01-22] MEDS: ROCEPHIN 1 GM in NS 50 ML IV SCH (09:40)
[2020-01-22] MEDS: ENTRESTO 24 MG-26 MG TABLET PO SCH ×2 (09:40→20:59)
[2020-01-22] MEDS: LASIX IV SCH ×2 (09:46→21:00)
[2020-01-22] MEDS: THIAMINE 500 MG in NS 50 ML IV SCH ×2 (12:19→18:18)
--- NOTE | 2020-01-22 13:28 | CARDIOLOGY PROGRESS NOTE ---
DATE: 01/22/2020 SUBJECTIVE: Mr. Kathleen has no complaints other than some mild ankle pain. His breathing is doing well. He does appear to be a little bit more confused likely suggestive of some mild alcohol withdrawal. PHYSICAL EXAMINATION: Vital Signs: Afebrile. Heart rate 88, blood pressure 113/83. His I's and O's continue to be challenging. He has had a Jamison catheter placed in the interim. General: No acute distress. Cardiovascular: He sounds to be in a regular rate and rhythm. He has no murmurs. He has no S3. His JVP appears to continue to be somewhat elevated but improved. He has mild lower extremity edema and warm well-perfused extremities. Chest: Exam has reduced breath sounds in the right base. No increased work of breathing. Abdomen is soft, nontender. PERTINENT DATA: His sodium is 138, potassium 4.4, BUN 39, creatinine is 1.4. His white count is 4.08. ASSESSMENT: Mr. Kathleen is a 64-year-old with nonischemic cardiomyopathy. PLAN: We will continue to titrate medications. He continues on IV diuretics. Digoxin, metoprolol and Entresto. Again the patient appears to be in mild withdrawal presently. Hopefully, we will get improved I's and O's with his Jamison catheter. ProBNP is ordered for the morning. cc: Som Wilkinson MD
[2020-01-22 14:38] LABS: URINE SOURCE CATH
[2020-01-22 14:44] LABS: BILIRUBIN URINE NEGATIVE (NEGATIVE); BLOOD URINE NEGATIVE (NEGATIVE); COLOR STRAW; GLUCOSE URINE NEGATIVE (NEGATIVE); KETONE URINE NEGATIVE (NEGATIVE); LEUKOCYTES URINE NEGATIVE (NEGATIVE); NITRITE URINE NEGATIVE (NEGATIVE); PROTEIN URINE NEGATIVE (NEGATIVE); SP GRAVITY URINE 1.008; TURBIDITY URINE CLEAR (CLEAR); UROBILINOGEN URINE NORMAL (NORMAL)
[2020-01-22 14:47] LABS: UR EPITHELIAL CELLS <10 /HPF (<10); URINE BACTERIA NEGATIVE /HPF; URINE RBC <10 /HPF (<10); URINE WBC <10 /HPF (<10)
--- NOTE | 2020-01-22 19:25 | PULMONOLOGY PROGRESS NOTE ---
DATE: 01/22/2020 SUBJECTIVE: The patient is awake, alert, and conversant. He reports he feels better, although he has not had significant diuresis documented. He was asking when he could go home. It is not completely clear he is oriented. OBJECTIVE: Vital Signs: The patient is afebrile for the last 24 hours. Blood pressure 110/80, heart rate 80, respiratory rate 18, oxygen saturation 98% on room air. HEENT: Pupils are equal and reactive. Oropharynx appears clear. Neck: Supple. Chest: Reveals decreased breath sounds right base. Cardiac exam: S1, S2. Abdomen: Soft. Extremities: Reveal 2+ peripheral edema. IMPRESSION: A 64-year-old with: 1. Ongoing nicotine addiction and tobacco use. 2. Amphetamine use. 3. Marijuana use. 4. Noncompliance with medical regimen. 5. Systolic heart failure. 6. Severe pulmonary hypertension. 7. Pleural effusion. PLAN: 1. Continue diuretics and heart failure management as per Dr. Som Wilkinson. 2. Chest x-ray tomorrow. 3. Consider followup CT scan for lung mass in 6 months. cc: Ronal Larsen MD
[2020-01-22] MEDS: AMBIEN PO SCH (20:59)
[2020-01-23] MEDS: THIAMINE 500 MG in NS 50 ML IV SCH ×3 (02:43→17:11)
[2020-01-23] MEDS: DUONEB (A & A) INH SCH ×4 (03:32→21:40)
--- NOTE | 2020-01-23 07:12 | Diag Imaging Result Doc PS360 ---
EXAM: CHEST-PORTABLE 01/23/2020 HISTORY: abnormal exam TECHNIQUE: AP portable at 0602 COMMENT: There are bilateral pleural effusions. There is cardiomegaly. There is mild interstitial pulmonary edema. Compared to 01/20/2020, there is slightly worsened opacification the retrocardiac left lower lobe. IMPRESSION: Cardiomegaly and mild pulmonary edema. Pleural effusions. Atelectasis versus pneumonia left lower lobe. Electronically signed by Brennen Abernathy 01/23/2020 7:10 AM
[2020-01-23 07:16] LABS: CALCIUM 8.7 mg/dL (8.8-10.2); CREATININE 1.5 mg/dL (0.7-1.2); MAGNESIUM 1.7 mg/dL (1.5-2.7); POTASSIUM 4.1 mmol/L (3.5-5.1)
[2020-01-23] MEDS: LIBRIUM PO SCH ×2 (09:26→21:12)
[2020-01-23] MEDS: NORCO-10 PO SCH ×3 (09:27→21:13)
[2020-01-23] MEDS: LASIX IV SCH ×2 (09:28→21:12)
[2020-01-23] MEDS: LANOXIN PO SCH (09:28)
[2020-01-23] MEDS: ENTRESTO 24 MG-26 MG TABLET PO SCH ×2 (09:28→21:11)
[2020-01-23] MEDS: ASPIRIN PO SCH (09:28)
[2020-01-23] MEDS: LOPRESSOR PO SCH (09:28)
[2020-01-23] MEDS: HEPARIN SUBQ SCH ×2 (09:28→21:11)
[2020-01-23] MEDS ORDERED: MAGNESIUM SULFATE 2 GM/S.W.I. 2 GM/50 ML IVPB IV ONE (10:28)
--- NOTE | 2020-01-23 11:01 | CARDIOLOGY PROGRESS NOTE ---
DATE: 01/23/2020 SUBJECTIVE: Mr. Kathleen is sitting up in his bed. He does appear to be a little more lethargic this morning, but he is answering questions appropriately. He is awake and will arouse easily. He was asking to make a phone call to call his , which we did, and he was able to speak to her appropriately. OBJECTIVE: Vital Signs: The patient is afebrile. Blood pressure is 120/81, heart rate is 81 beats per minute. His weight is 147 pounds, which is stable. His intake and output over the last 24 hours is recorded as an intake of 700 mL and output of 4100 mL, giving him a negative balance of 3400 mL, which was measured appropriately in a Nevarez catheter. General: The patient is somewhat lethargic, but is in no acute distress. Neck: Supple with JVD present. Cardiovascular: He is in regular rate and rhythm. I do appreciate a positive systolic murmur at 3/6. S1 and S2 are noted. As mentioned above, he has continued JVD. Pulmonary: His chest seems more clear but with some diminished breath sounds, especially in the right base. Abdomen: Soft, nontender, nondistended with some positive bowel sounds. Extremities: He is currently wearing compression stockings, but there does still appear to be 1 to 2+ pitting edema in bilateral lower extremities. Neurologic: He is lethargic, but is easily arousable and pleasant. LABORATORY DATA: His sodium is 139, potassium 4.1, BUN is 41, and his creatinine is 1.5 with a glucose 86. His magnesium level is 1.7. His proBNP today is 19,255, which is decreased from 29,470 which was done on 01/21/2020. His white blood cell count is 4.08, hemoglobin is 13.1, hematocrit is 39.8 with a platelet count of 175,000. IMAGING STUDIES: Portable chest x-ray done on 01/23/2020 shows cardiomegaly with some mild pulmonary edema and still with some small bilateral pleural effusions and some atelectasis, specifically in the left lower lobe. This was compared to 01/20/2020. ASSESSMENT AND PLAN: 1. Acute on chronic systolic heart failure in the setting of nonischemic cardiomyopathy. At this time, we will continue with the diuresis process using IV Lasix. We will also continue to titrate his medications. Currently, we are using digoxin, metoprolol, and Entresto. We will continue to monitor his input and output closely and adjust diuresis appropriately. 2. Severe pulmonary hypertension. Continue current medical regimen and greatly appreciate Dr. Larsen's input. 3. Ongoing nicotine addiction, tobacco use, known amphetamine use, known marijuana use, known noncompliance to his medical therapy. We will continue with counseling with the patient each day to encourage him to stop all of these harmful agents, and we will assist with any withdrawal process that we can. I will discuss this case with Dr. Som Wilkinson, recommendations above and forth coming. ADDENDUM: I agree with the above findings. We will continue with diuresis. pBNP is improving. Overall he appears to be improving clinically. Urine output noted to be good after nevarez catheter was placed yesterday. Renal function has remained stable. His EtOH withdrawal appears better today. Dictated by ADALI Gleason for Som Wilkinson MD cc: ADALI Gleason MD [facility]
--- NOTE | 2020-01-23 11:45 | PROGRESS NOTE ---
DATE: 01/23/2020 INTERVAL HISTORY: No acute events overnight. He did not need intravenous lorazepam overnight. SUBJECTIVE: Mr. Kathleen is feeling better. Denies chest pain, shortness of breath. He denies cough, nausea, vomiting, abdominal pain. He states he is eating better. He has urine catheter with significant negative output. We discussed about his congestive heart failure. I answered all of his questions. VITAL SIGNS: Temperature 97.5 degrees, pulse 80, respiratory rate 20, blood pressure 120/80, saturating 94% on room air. PHYSICAL EXAMINATION: General: He is not in acute distress. HEENT: Oral cavity is moist. Lungs: Air entry bilaterally equal. No wheeze, rhonchi, crackles except mild crackles on right inframammary region. Cardiovascular: S1, S2 normal. No murmur, rub or gallop. Not tachycardic. Abdomen: Soft, nontender. He also has a right-sided lower quadrant colostomy bag. Extremities: He has bilateral lower extremity edema. Neck: He has neck vein distention. Neurologic: He is alert, he is oriented. He is answering questions appropriately. LABORATORY DATA: Suggestive of no CBC today. His potassium is 4.1 and magnesium of 1.7 which is being repleted. BUN is 41, creatinine 1.5. He continues to have elevated proBNP of 19,000. MICROBIOLOGY: No positive microbiological data. IMAGING: Chest x-ray this morning has mild pulmonary edema, pleural effusions, atelectasis of the left lower lobe. ASSESSMENT AND PLAN: 1. Acute on chronic systolic congestive heart failure exacerbation with ejection fraction of 15 to 20 percent and history of nonischemic cardiomyopathy, likely because of substance abuse, status post automatic implanted cardioverter/defibrillator. The patient also had history of atrial fibrillation and cardiac arrest in the past. Continue intravenous Lasix, metoprolol, digoxin, aspirin, and Entresto as per Cardiology team's recommendation. Close input and output monitoring through Jamison catheter. 2. History of polysubstance abuse including cannabis, marijuana and amphetamine on presentation with documented history of alcohol abuse with mild withdrawal and delirium due to substance withdrawal. Continue intravenous thiamine, oral chlordiazepoxide and intravenous lorazepam as needed. His withdrawal symptoms are better on examination with no flapping tremor today. 3. Acute kidney injury due to intravenous Lasix use is currently stable. I will continue to monitor his kidney function. 4. Right lung pleural effusion and right lower lobe atelectasis. However, the patient does not have any leukocytosis or cough. I will continue to monitor it. He is status post 3 to 4 days of intravenous antibiotics. 5. History of diverticulitis, status post colostomy. Aware. 6. Others. Continue zolpidem for insomnia; Herrick for chronic pain; multivitamin for chronic alcohol abuse. DISPOSITION: Continue monitor patient inside the hospital as he has significantly elevated proBNP and is in need for intravenous Lasix. Plan of care discussed with him, his questions have been answered. cc: Adrian Gallegos MD MTDD
[2020-01-23] MEDS: AMBIEN PO SCH (23:06)
--- NOTE | 2020-01-23 23:24 | PULMONOLOGY PROGRESS NOTE ---
DATE: 01/23/2020 SUBJECTIVE: The patient is awake, alert, and conversant. He reports he feels better. He is anxious to go home. OBJECTIVE: Vital Signs: The patient has been afebrile for the last 24 hours. Blood pressure 103/76, heart rate 73, respiratory rate 16, oxygen saturation 98% on room air. HEENT: Pupils are equal and reactive. Oropharynx appears clear. Neck: Supple. Chest: Reveals decreased breath sounds both lung bases. Cardiac: S1-S2. Abdomen: Soft. Extremities: Without edema. LABORATORIES: ProBNP is markedly elevated at 19,000, but has decreased from 29,000. Chest x-ray reveals cardiomegaly with probable effusions in both lung bases. IMPRESSION: A 64-year-old with 1. Ongoing nicotine addiction and tobacco use. 2. Amphetamine use. 3. Marijuana use. 4. Systolic heart failure. 5. Severe pulmonary high. 6. Pleural effusion. 7. Noncompliant with medical regimen. PLAN: 1. Continue current heart failure management per Cardiology. 2. Consider followup CT scan for lung mass in 6 months. 3. Encourage smoking cessation. 4. Encourage discontinuation of marijuana and amphetamines. 5. Strongly encourage compliance with medical regimen. cc: Ronal Larsen MD
[2020-01-24] MEDS: THIAMINE 500 MG in NS 50 ML IV SCH (03:03)
[2020-01-24] MEDS: DUONEB (A & A) INH SCH ×3 (03:35→22:36)
[2020-01-24 06:18] LABS: CALCIUM 9.2 mg/dL (8.8-10.2); CREATININE 1.6 mg/dL (0.7-1.2); POTASSIUM 3.9 mmol/L (3.5-5.1)
[2020-01-24] MEDS: LIBRIUM PO SCH (08:54)
[2020-01-24] MEDS: LANOXIN PO SCH (08:54)
[2020-01-24] MEDS: ENTRESTO 24 MG-26 MG TABLET PO SCH ×2 (08:54→20:42)
[2020-01-24] MEDS: LASIX IV SCH (08:55)
[2020-01-24] MEDS: LOPRESSOR PO SCH (08:55)
[2020-01-24] MEDS: ASPIRIN PO SCH (08:55)
[2020-01-24] MEDS: HEPARIN SUBQ SCH ×2 (08:55→20:42)
[2020-01-24] MEDS: NORCO-10 PO SCH ×3 (08:55→20:42)
--- NOTE | 2020-01-24 11:10 | CARDIOLOGY PROGRESS NOTE ---
DATE: 01/24/2020 SUBJECTIVE: Mr. Kathleen reports no shortness of breath. He has no orthopnea. OBJECTIVE: Vital signs: The patient is afebrile. His heart rate is 70. His blood pressure is 117/82. His I's and O's have been negative over the last couple of days. His net output is 6 L. General: He is in no acute distress. Cardiovascular: He sounds to be in a regular rate and rhythm. He has a 2/6 systolic murmur best heard at the apex. He has no lower extremity edema. He has warm and well-perfused extremities. Chest: His chest exam has mild reduction in breath sounds diffusely in the bases. PERTINENT DATA: Sodium 141, potassium 3.9, BUN 39, creatinine is 1.6, this has trended up from 1.4 on the 7th. His proBNP was 19,000 on the 8th, which was down from 29,000 on the 6th. ASSESSMENT: Mr. Kathleen is a 64-year-old, black male with a nonischemic cardiomyopathy. He has had continued alcohol use and has had signs of withdrawal. PLAN: At this point considering his increase in creatinine, I have decreased his Lasix to IV daily. Laboratories have been ordered for the morning. No further recommendations at this time. cc: Som Wilkinson MD
--- NOTE | 2020-01-24 19:51 | PROGRESS NOTE ---
DATE: 01/24/2020 INTERVAL HISTORY: No acute events overnight. SUBJECTIVE: Mr. Kathleen is denying any new complaints. He denies chest pain, shortness of breath, nausea, vomiting. He is tolerating a diet well. He asked me if he could go home. I discussed with him about need for some IV diuresis, considering his elevated proBNP. PHYSICAL EXAMINATION: Vital Signs: Temperature 98.4, pulse 68, respiratory 18, blood pressure 99/67, saturating 92% on room air. General: Not in acute distress. HEENT: Oral cavity is moist. Neck: He does not have any jugular venous distention. Lungs: Air entry bilaterally equal. No wheeze, rhonchi or crackles. Cardiovascular: S1, S2 normal. Diastolic murmur affecting left lower sternal border. Abdomen: Soft. Right quadrant colostomy bag. Active bowel sounds. Extremities: No lower extremity edema. He has mild lower extremity edema which is improved from presentation. Neurologic: He is alert and oriented x3. LABS: No CBC today. [facility] has a BUN of 39, creatinine of 1.6. His proBNP is decreased from 27,000 on presentation to 19,000. Microbiology: No positive data. No new imaging. ASSESSMENT AND PLAN: 1. Acute on chronic systolic congestive heart failure exacerbation with ejection fraction of 15 to 20 percent, likely because of dietary and medication noncompliance. He has a history of nonischemic cardiomyopathy, likely related to substance abuse, status post automatic implantable cardioverter-defibrillator. He also had history of atrial fibrillation and cardiac arrest in the past. Continue intravenous Lasix as per Cardiology team's recommendation. I will continue his metoprolol digoxin, aspirin, and Entresto. I will remove his Jamison catheter tonight. 2. History of polysubstance abuse including cannabis, marijuana and amphetamine with previous history of alcohol abuse with mild delirium tremens, now improved. He was counseled about stopping use of these substances again today. He has not been showing any signs of alcohol withdrawal at the moment, and I will stop his Librium. I will keep him on as-needed lorazepam and oral multivitamin tablets. 3. Acute kidney injury due to intravenous Lasix use. His Lasix dose has been decreased. I will follow up with [facility] tomorrow. 4. Right lower lung effusion with atelectasis which is stable. He does not have any cough. I will follow up with CBC tomorrow. 5. History of diverticulitis, status post colostomy. 6. Continue zolpidem for insomnia and Maud for chronic pain. DISPOSITION: I will await a proBNP and Cardiology's recommendation tomorrow. Based on that, I would anticipate discharge in the next 24 hours. Plan of care discussed with Mr. Kathleen. He is in agreement. All of his questions have been answered. cc: Adrian Gallegos MD
[2020-01-25] MEDS: AMBIEN PO SCH (02:19)
[2020-01-25] MEDS: DUONEB (A & A) INH SCH ×3 (03:19→09:04)
[2020-01-25 06:31] LABS: AGAP 11; ALB/GLOB RATIO 0.9; ALBUMIN 3.1 g/dL (3.5-5.0); ALKALINE PHOSPHATASE 126 U/L (32-122); BUN 37 mg/dL (8-22); CALCIUM 8.9 mg/dL (8.8-10.2); CHLORIDE 100 mmol/L (98-107); COSMO 292; CREATININE 1.4 mg/dL (0.7-1.2); ESTIMATED GFR > 60; GLUCOSE 97 mg/dL (70-104); GOT 37 U/L (10-34); GPT 24 U/L (10-44); MAGNESIUM 1.7 mg/dL (1.5-2.7); POTASSIUM 4.1 mmol/L (3.5-5.1); SODIUM 142 mmol/L (136-145); TCO2 31 mmol/L (25-35); TOTAL BILIRUBIN 0.69 mg/dL (0.20-1.00); TOTAL PROTEIN 6.4 g/dL (6.3-8.3)
[2020-01-25] MEDS: NORCO-10 PO SCH (08:04)
[2020-01-25] MEDS: ENTRESTO 24 MG-26 MG TABLET PO SCH (08:05)
[2020-01-25] MEDS: ASPIRIN PO SCH (08:05)
[2020-01-25] MEDS: LANOXIN PO SCH (08:05)
[2020-01-25] MEDS: LOPRESSOR PO SCH (08:06)
[2020-01-25] MEDS: HEPARIN SUBQ SCH (08:06)
[2020-01-25] MEDS ORDERED: THERA M PLUS PO SCH (09:00)
[2020-01-25] MEDS ORDERED: LASIX IV SCH (09:00)
[2020-01-25 12:20] VITALS: BP 108/92
--- NOTE | 2020-01-25 13:44 | DISCHARGE SUMMARY ---
ADMISSION DATE: 01/19/2020 DISCHARGE DATE: 01/25/2020 DISCHARGE DISPOSITION: Home. DISCHARGE CONDITION: Hemodynamically stable. He denies any chest pain or shortness of breath. His lower extremity edema has significantly decreased. He is alert and oriented x3, and is not demonstrating any signs of alcohol withdrawal. He is counseled about stopping tobacco, alcohol, recreational substances, and being compliant with his medications. He was allowed to ask questions. His questions were answered. DISCHARGE DIAGNOSES: 1. Acute on chronic systolic congestive heart failure exacerbation due to medication noncompliance. 2. Polysubstance abuse including cannabis, amphetamine, and previous history of alcohol abuse. 3. Acute alcohol withdrawal with mild delirium tremens. 4. Acute kidney injury due to intravenous Lasix use. 5. Chronic right lower lung effusion with atelectasis. 6. Sepsis ruled out. 7. Syncope due to CHF, medication non compliance. 8. Anion gap metabolic acidosis. OTHER DIAGNOSES: 1. History of nonischemic cardiomyopathy with ejection fraction 15 to 20 percent status post AICD. 2. History of cardiac arrest in the past. 3. History of polysubstance abuse. 4. History of diverticulitis. 5. History of paroxysmal atrial fibrillation. 6. History of diverticulitis, status post colostomy. DISCHARGE MEDICATIONS: 1. Zolpidem 10 mg at nighttime. 2. Aspirin 81 mg in the morning time. 3. Digoxin 0.125 mg daily. 4. Metoprolol 100 mg daily. 5. [place] 10 1 tablet t.i.d. 6. Entresto 24-26 mg 1 tablet b.i.d. (90 tablets have been prescribed). 7. Lasix 40 mg b.i.d. (90 tablets have been prescribed). 8. Nicotine patch 21 mg once a day 14 patches have been prescribed. 9. Multivitamin 1 tablet daily 30 tablets have been prescribed. VITALS: At the time of discharge, temperature 98 degrees, pulse 75, respiratory 18, blood pressure 108/92 and saturating 97% on room air. PHYSICAL EXAMINATION: General: Mr. Felton is not in acute distress. HEENT: Oral cavity is moist. Air entry bilaterally equal. No wheezing, rhonchi, or crackles. Cardiovascular: S1, S2 normal. No murmur or gallop. He has left-sided chest AICD. Abdomen: Obese, soft, and nontender. He has right quadrant colostomy. Active bowel sounds. Mild bilateral ankle edema. He does not have any jugular venous distention. Negative hepatojugular reflex. He is alert and oriented x3. LABS AT THE TIME OF ADMISSION AND DISCHARGE: His WBC on admission was 9.8 which improved to 4000 at the time of discharge, hemoglobin 13.1, platelets 175,000. His ABG on presentation shows pH of 7.31 and bicarbonate of 20. His PO2 was 95. On presentation, he had creatinine of 1.6, and BUN of 25. He did have elevated proBNP as high as 27,000 on presentation which improved to 5900 at the time of discharge. His troponins were initially 77, and the repeat was 84. His urine toxicology was positive for opiates, amphetamine and cannabis. MICROBIOLOGY: Blood culture did not have any growth. IMAGING: At the time of hospital admission and discharge on 01/18, chest x-ray had nonspecific findings. He likely had congestive heart failure. Head CT did not have any acute intracranial process. Chest CT on 01/20 had right pleural effusion, right lower lobe atelectasis versus pneumonia. Chest x-ray on 01/22 had cardiomegaly, mild pulmonary edema, pleural effusions, and left lower lobe atelectasis versus pneumonia. Electrocardiogram on 01/18 had sinus rhythm with occasional premature ventricular complexes, possible left atrial enlargement, left axis deviation, left ventricular hypertrophy with QRS widening and repolarization abnormality. Inferior infarct - age undetermined. CONSULTATION DURING HOSPITAL ADMISSION: 1. Cardiology, Dr. Som Wilkinson 2. Pulmonology, Dr. Larsen. HOSPITAL COURSE SUMMARY: Mr. Kathleen is a 65-year-old man who presented on 01/19/2020 with chief complaint of feeling poorly. He was also found down by his family at home, and reportedly his heart rate was in the 30s though we did not have any definitive records of that. On arrival to the emergency room, the patient did not recall the events which led to syncope though he did report he was feeling poorly and was having weakness since several weeks. He had constipation, shortness of breath, and bilateral lower extremity edema with productive cough with yellowish sputum. He did report he had shocks by AICD 2 months ago though he did not have any sick contacts. In the emergency room, he was found to have temperature of 97.1 degrees, pulse of 98, respiratory rate 18, and blood pressure of 110/77. He was saturating 93% on room air on arrival. Initial labs had WBC of 9.8, hemoglobin 14, and platelet of 193,000, PO2 of 95 on 3 L nasal cannula. His creatinine was 1.6, and proBNP was [address]. Head [address] was unremarkable. He was found to be in volume overload so hospitalist team was consulted for further management. Initially, he was diagnosed with sepsis due to right lower lobe pneumonia and was started on broad- spectrum antibiotic incentive spirometry and intravenous Lasix. Pulmonology and Cardiology were consulted. With 3 days of antibiotics, his clinical condition had improved. He did not have any leukocytosis on presentation and he had reported that his cough was close to his baseline. Blood culture did not have any growth so his antibiotics were stopped 3 days later. He was continued on diuresis, and he did not have any symptoms related to pneumonia so sepsis was ruled out. He was noncompliant with his heart failure medication, and that probably led to congestive heart failure exacerbation. With reinstitution of his medications, he made significant urine output. At the time of discharge, he is -8 L with significant decrease in proBNP to 5900. He was also started with Entresto, and his mexiletine was discontinued at the time of discharge. He was advised to follow up with Dr. Wilkinson in his office. At the time of discharge, he was counseled about stopping recreational substance use. He was allowed to ask questions, all of his questions satisfactorily answered. 35 minutes were spent. cc: MD JULISSA Younger
== END 2020-01-25 15:07 | disposition home or self-care (01) | DRG 291 ==
LOC: ED 01:35 → 2N 08:45 → SUATTDRO 08:45
PROVIDERS: ATTEND Internal Medicine